=== PATIENT | female | born 1940 | race Caucasian/White ===

== ENCOUNTER 2024-09-07 15:12 | Outpatient (RCR) | payer MEDICARE, OTHER, SELFPAY | END 2024-09-07 23:59 | disposition home or self-care (01) | LOC: RST 15:12 | PROVIDERS: ATTENDING PHYSICIAN Radiology Radiation Oncology; PRIMARYCARE PHYSICIAN Internal Medicine | DX: C01 Malignant neoplasm of base of tongue (principal); R13.19 Other dysphagia | CPT/HCPCS: 92526; 92610 ==

== ENCOUNTER 2024-10-08 09:17 | Outpatient (RCR) | payer MEDICARE, OTHER, SELFPAY | END 2024-10-08 23:59 | disposition home or self-care (01) | LOC: RPT 09:17 | PROVIDERS: ATTENDING PHYSICIAN Radiology Radiation Oncology; PRIMARYCARE PHYSICIAN Internal Medicine | DX: C01 Malignant neoplasm of base of tongue (principal); R13.19 Other dysphagia | CPT/HCPCS: 92526 ==

== ENCOUNTER 2024-11-05 14:14 | Inpatient (IN) | payer MEDICARE, OTHER, SELFPAY ==
[2024-11-05] VITALS (9 sets, daily range): BP systolic 120–156; BP diastolic 57–81; BMI 28.3; BMI 25.6
--- NOTE | 2024-11-05 11:10 | ED.GENMED ---
History of Present Illness
<Jade Burns PA-C - Last Filed: 11/05/24 15:33>
General
Chief Complaint: Abdominal Symptoms
Source: patient and spouse
Exam Limitations: none
Time Seen by Provider: 11/05/24 10:57
History of Present Illness
History of Present Illness:
83yoF with a history of squamous cell carcinoma of the tongue, hypertension, and hyperlipidemia presenting with her for evaluation of vomiting. Patient drank a shake 3 days ago and vomited afterwards. She has been having nausea and a
'nervous stomach' since then and has not been eating much. She ate some noodles and soup last night for dinner and vomited some of it up. She took both Compazine and Zofran last night about 10 minutes before eating. She called her oncologist
today and was told to go to the ED for evaluation. Patient finished 7 weeks of chemotherapy and radiation earlier this week. She denies any fevers, chest pain, shortness of breath, abdominal pain.
Phy Exam
<Jade Burns PA-C - Last Filed: 11/05/24 15:33>
General Physical Exam
General Presentation: no apparent distress
General Skin: warm and dry
General Habitus: normal
General Mental: alert
ENT Exam
ENT Exam: other (Erythema/irritation noted in posterior oropharynx)
Cardiovascular Exam
Cardiovascular Exam: regular rate/rhythm
Pulmonary Exam
Pulmonary Exam: lungs clear, no respiratory distress, no rales, no crackles, no rhonchi and no wheezing
Gastrointestinal Exam
Gastrointestinal Exam: non tender, soft and non distended
Neurological Exam
Neurological Exam: alert
Janel Coma Scale
Eye Opening: Spontaneous
Verbal Response: Oriented
Motor Response: Obeys Commands
GCS Total Score: 15
Skin Exam
Skin Exam: normal color and warm/dry
Psychiatric Exam
Psychiatric Exam: normal mood/affect
Course
<Jade Burns PA-C - Last Filed: 11/05/24 15:33>
Orders/Labs/Results
Orders:
Orders
11/05/24 11:09
0.9% Sodium Chloride 1000 ml [Nss] 1,000 ml IV BOLUS
Ondansetron Injectable [Zofran] 4 mg IV NOW STA
11/05/24 11:38
Complete Blood Count/With Diff Urgent
Comprehensive Metabolic Panel Urgent
Magnesium Urgent
11/05/24 13:00
Cardiac Monitoring- Treatment ONCE
Potassium Chloride [KCl] 40 meq PO NOW STA
11/05/24 13:01
Electrocardiogram (*1) Urgent
Reason for Study: QTc Monitoring
11/05/24 13:07
Magnesium Sulfate 4 Gram/100Ml [Magnesium Sulfate] 4 gram in 100 ml IV NOW
11/05/24 13:12
Potassium Chloride 10% Elixir [KCl Elixir] 40 meq PO NOW STA
11/05/24 13:49
Admit/Transfer Patient As Directed
Co-Sign Provider:
Level of Care: Inpatient admission
Assign to:: Telemetry
Physician / Group: gamaliel damon
Diagnosis: intract nausea/vomiting 2/2 chemo, hypomag, hypokalemia
Reason for Telemetry: Arrhythmia
Date to Stop Telemetry: 11/08/24
Time to Stop Telemetry: 11:00
Reason for Hospitalization: intract nausea/vomiting 2/2 chemo, hypomag, hypokalemia
Expected length of stay greater than two midnights?: Yes
ELOS- Estimated Length of Stay in days: 3
I certify the patient meets the requirements for IP care: Yes
Code Status As Directed
Resuscitation Status: Full Code
11/05/24 13:54
PRN Pain Medication Management As Directed
May give lesser potent ordered pain med per pt: Yes
preference::
Protocol:: Medication orders for pain may be administered in a
manner that supports deferring to patient preference
when the pt is:
- Requesting an ordered lesser potent pain medication.
Least to most potent pain medications are defined
as: acetaminophen < NSAID < tramadol < opioids
(morphine, oxycodone, hydromorphone).
- Requesting a lesser dose of the same medication IF
ORDERED.
- Requesting a less intrusive route of administration
if both routes are prescribed by the provider (PO <
IV).
11/05/24 14:00
Flush (0.9% Sodium Chloride) [Flush (Nss)] See Dose Instructions IV PER PROTOCOL
11/05/24 14:02
Potassium Chloride 10% Elixir [KCl Elixir] 40 meq PO NOW STA
11/05/24 Dinner
Full Liquids
At Your Request: Full Participation
Does patient need a safe tray?: No
11/05/24 15:27
0.9% Sodium Chloride 1000 ml [Nss] 1,000 ml Potassium Chloride [KCl] 40 meq IV 80 mls/hr
Acetaminophen [Tylenol] 650 mg PO Q4HPRN PRN
Oxycodone [Roxicodone] 5 mg PO Q6HPRN PRN severe pains
Promethazine [Phenergan] 12.5 mg 0.9% Sodium Chloride 50 ml [Nss] 50 ml IV Q4HPRN
Viscous Lidocaine 2% [Xylocaine Viscous Cup] DOSE ml PO BIDPRN PRN throat pain
11/05/24 15:27
Activity As Directed
Activity Level: As Tolerated
Intake/ Output As Directed
Frequency: Per unit guidelines
Vital Signs As Directed
Frequency: Per unit guidelines
Weight As Directed
Frequency: Daily
Pt Eval And Treat Routine
Activity Level: As Tolerated
DX Deep Vein Thrombosis Video Routine
11/05/24 18:00
Ondansetron Injectable [Zofran] 4 mg IV Q6HPRN PRN
11/05/24 20:00
Heparin 5,000 units SC Q12
pregabalin [Lyrica] 150 mg PO BID
11/06/24 06:00
Complete Blood Count/With Diff IN AM
Comprehensive Metabolic Panel IN AM
11/06/24 08:00
Amlodipine [Norvasc] 5 mg PO DAILY
Escitalopram Oxalate [Lexapro] 10 mg PO DAILY
11/07/24 06:00
Complete Blood Count/With Diff IN AM
Comprehensive Metabolic Panel IN AM
11/08/24 06:00
Complete Blood Count/With Diff IN AM
Comprehensive Metabolic Panel IN AM
11/08/24 11:00
DC Protocol for Telemetry ONCE
Abnormal Lab Results
11/05/24
11:38
WBC 1.9 L* 10^3/uL
(4.8-10.8)
RBC 3.29 L 10^6/uL
(4.20-5.40)
Hgb 10.1 L g/dL
(12.0-16.0)
Hct 30.0 L %
(37.0-47.0)
Absolute Lymphs (auto) 0.2 L 10^3/uL
(1.2-3.4)
Lymphocytes % 10.0 L %
(20.5-51.1)
Monocytes % 15.8 H %
(1.7-9.3)
Potassium 3.0 L mmol/L
(3.5-5.1)
BUN 24 H mg/dl
(7-17)
Creatinine 0.5 L mg/dL
(0.6-1.0)
Calcium 7.8 L mg/dl
(8.4-10.2)
Magnesium 0.9 L* mg/dl
(1.6-2.3)
11/05/24 11:38
11/05/24 11:38
Vital Signs
Initial and Last Documented VS:
Initial Vital Signs
Temp Pulse Resp BP Pulse Ox
98.7 F 89 20 123/72 94
11/05/24 10:30 11/05/24 10:30 11/05/24 10:30 11/05/24 10:30 11/05/24 10:30
Last Documented Vital Signs
Temp Pulse Resp BP Pulse Ox
98.7 F 85 16 128/62 93
11/05/24 10:30 11/05/24 13:00 11/05/24 13:00 11/05/24 13:00 11/05/24 13:00
<Paco Waldron, DO - Last Filed: 11/05/24 14:01>
Orders/Labs/Results
Orders:
Orders
11/05/24 11:09
0.9% Sodium Chloride 1000 ml [Nss] 1,000 ml IV BOLUS
Ondansetron Injectable [Zofran] 4 mg IV NOW STA
11/05/24 11:38
Complete Blood Count/With Diff Urgent
Comprehensive Metabolic Panel Urgent
Magnesium Urgent
11/05/24 13:00
Cardiac Monitoring- Treatment ONCE
Potassium Chloride [KCl] 40 meq PO NOW STA
11/05/24 13:01
Electrocardiogram (*1) Urgent
Reason for Study: QTc Monitoring
11/05/24 13:07
Magnesium Sulfate 4 Gram/100Ml [Magnesium Sulfate] 4 gram in 100 ml IV NOW
11/05/24 13:12
Potassium Chloride 10% Elixir [KCl Elixir] 40 meq PO NOW STA
11/05/24 13:49
Admit/Transfer Patient As Directed
Co-Sign Provider:
Level of Care: Inpatient admission
Assign to:: Telemetry
Physician / Group: gamaliel damon
Diagnosis: intract nausea/vomiting 2/2 chemo, hypomag, hypokalemia
Reason for Telemetry: Arrhythmia
Date to Stop Telemetry: 11/08/24
Time to Stop Telemetry: 11:00
Reason for Hospitalization: intract nausea/vomiting 2/2 chemo, hypomag, hypokalemia
Expected length of stay greater than two midnights?: Yes
ELOS- Estimated Length of Stay in days: 3
I certify the patient meets the requirements for IP care: Yes
Code Status As Directed
Resuscitation Status: Full Code
11/05/24 13:54
PRN Pain Medication Management As Directed
May give lesser potent ordered pain med per pt: Yes
preference::
Protocol:: Medication orders for pain may be administered in a
manner that supports deferring to patient preference
when the pt is:
- Requesting an ordered lesser potent pain medication.
Least to most potent pain medications are defined
as: acetaminophen < NSAID < tramadol < opioids
(morphine, oxycodone, hydromorphone).
- Requesting a lesser dose of the same medication IF
ORDERED.
- Requesting a less intrusive route of administration
if both routes are prescribed by the provider (PO <
IV).
11/05/24 14:00
Flush (0.9% Sodium Chloride) [Flush (Nss)] See Dose Instructions IV PER PROTOCOL
11/05/24 14:02
Potassium Chloride 10% Elixir [KCl Elixir] 40 meq PO NOW STA
11/05/24 Dinner
Full Liquids
At Your Request: Full Participation
Does patient need a safe tray?: No
11/05/24 15:27
0.9% Sodium Chloride 1000 ml [Nss] 1,000 ml Potassium Chloride [KCl] 40 meq IV 80 mls/hr
Acetaminophen [Tylenol] 650 mg PO Q4HPRN PRN
Oxycodone [Roxicodone] 5 mg PO Q6HPRN PRN severe pains
Promethazine [Phenergan] 12.5 mg 0.9% Sodium Chloride 50 ml [Nss] 50 ml IV Q4HPRN
Viscous Lidocaine 2% [Xylocaine Viscous Cup] DOSE ml PO BIDPRN PRN throat pain
11/05/24 15:27
Activity As Directed
Activity Level: As Tolerated
Intake/ Output As Directed
Frequency: Per unit guidelines
Vital Signs As Directed
Frequency: Per unit guidelines
Weight As Directed
Frequency: Daily
Pt Eval And Treat Routine
Activity Level: As Tolerated
DX Deep Vein Thrombosis Video Routine
11/05/24 18:00
Ondansetron Injectable [Zofran] 4 mg IV Q6HPRN PRN
11/05/24 20:00
Heparin 5,000 units SC Q12
pregabalin [Lyrica] 150 mg PO BID
11/06/24 06:00
Complete Blood Count/With Diff IN AM
Comprehensive Metabolic Panel IN AM
11/06/24 08:00
Amlodipine [Norvasc] 5 mg PO DAILY
Escitalopram Oxalate [Lexapro] 10 mg PO DAILY
11/07/24 06:00
Complete Blood Count/With Diff IN AM
Comprehensive Metabolic Panel IN AM
11/08/24 06:00
Complete Blood Count/With Diff IN AM
Comprehensive Metabolic Panel IN AM
11/08/24 11:00
DC Protocol for Telemetry ONCE
Abnormal Lab Results
11/05/24
11:38
WBC 1.9 L* 10^3/uL
(4.8-10.8)
RBC 3.29 L 10^6/uL
(4.20-5.40)
Hgb 10.1 L g/dL
(12.0-16.0)
Hct 30.0 L %
(37.0-47.0)
Absolute Lymphs (auto) 0.2 L 10^3/uL
(1.2-3.4)
Lymphocytes % 10.0 L %
(20.5-51.1)
Monocytes % 15.8 H %
(1.7-9.3)
Potassium 3.0 L mmol/L
(3.5-5.1)
BUN 24 H mg/dl
(7-17)
Creatinine 0.5 L mg/dL
(0.6-1.0)
Calcium 7.8 L mg/dl
(8.4-10.2)
Magnesium 0.9 L* mg/dl
(1.6-2.3)
11/05/24 11:38
11/05/24 11:38
Vital Signs
Initial and Last Documented VS:
Initial Vital Signs
Temp Pulse Resp BP Pulse Ox
98.7 F 89 20 123/72 94
11/05/24 10:30 11/05/24 10:30 11/05/24 10:30 11/05/24 10:30 11/05/24 10:30
Last Documented Vital Signs
Temp Pulse Resp BP Pulse Ox
98.7 F 85 16 128/62 93
11/05/24 10:30 11/05/24 13:00 11/05/24 13:00 11/05/24 13:00 11/05/24 13:00
Tanilt;Jade Burns PA-C - Last Filed: 11/05/24 15:33>
MDM/Problems Addressed
Differential Diagnosis Includes:
83yoF here with n/v x 3 days. Finished chemo and radiation 4 days ago for squamous cell tongue cancer. VSS. She is nontoxic-appearing. Abdominal exam is benign. Differential diagnosis includes but is not limited to: side effect of chemotherapy,
gastroenteritis, dehydration
Initial ED plan: Check CBC, CMP, and magnesium. IV Zofran and fluid bolus.
<Jade Burns PA-C - Last Filed: 11/05/24 15:33>
*Pulse Oximetry
SaO2: 94
Oxygen Mode of Delivery: Room air
Patient hypoxic: no
*EKG
Interpreted by ED Provider?: Yes
EKG Intrepretation Date: 11/05/24
Heart Rate: 82
Rate: normal
Rhythm: sinus
[place]: normal axis
Interval: normal interval
QRS Pattern: normal QRS
Ischemia: no ischemia
*Critical Care Note
Total Time (30-74mins, 75-104mins- exclusive of procedures): Not Applicable
<Jade Burns PA-C - Last Filed: 11/05/24 15:33>
Update Note
Update Note:
Labs reveal a magnesium of 0.9 and a potassium of 3.0. Leukopenia noted with a white count of 1.9. Neutrophils are normal and she is afebrile. EKG obtained and intervals are normal. Patient having difficulty tolerating oral fluids/electrolyte
replacement due to dysphagia from her radiation. 4g IV magnesium as well as 40mEq potassium normal. Patient admitted for further management.
ED Attending Note
<Jade Burns PA-C - Last Filed: 11/05/24 15:33>
-
Portions of this chart may have been created with voice recognition software.� Occasional wrong word or��sound alike� substitutions may have occurred due to the inherent limitations of voice recognition software.
<Paco Waldron DO - Last Filed: 11/05/24 14:01>
ED Attending Note
Patient seen and examined by attending physician: Yes
I performed the substantive portion of visit, reviewed & personally made and approve the management plan that is documented in note by myself or MATTHEW.: Yes
ED Attending Note:
Seen with PA examined independently agree with assessment and plan oncology patient with nausea decreased p.o. intake magnesium and potassium noted, ANC noted patient is unable to tolerate p.o. potassium here due to prior radiation will likely
require admission for IV therapy
Discharge Plan
Departure
Patient Disposition: Admit
Date of Disposition: 11/05/24
Time of Disposition: 13:17
Presentation/result/management discussed w/ accepting MD/DO: Hospitalist
Discharge Problem:
Nausea and vomiting, Hypomagnesemia, Hypokalemia
Interventions
Interventions:
*Risk Screen - Suicide Last Done: 11/05/24 10:30
*General Assessment Last Done: 11/05/24 10:30
*Neglect/Abuse Screening Last Done: 11/05/24 10:30
*Nursing Disposition Last Done: 11/05/24 15:17
QQ-[id number]-[id number] Assessment Last Done: 11/05/24 12:13
ED- Cardiac Assessment Last Done: 11/05/24 12:13
ED- Neurological Assessment Last Done: 11/05/24 12:13
ED- Pulmonary Assessment Last Done: 11/05/24 12:13
Discharge Date and Time
Discharge Date/Time: 11/05/24 15:18
[2024-11-05] MEDS: NSS 1000 IV (11:38)
[2024-11-05] MEDS: ZOFRAN 4 MG IV (11:41)
[2024-11-05 11:48] LABS: Hematocrit 30.0 % (37.0-47.0); Hemoglobin 10.1 g/dL (12.0-16.0); Mean Corp Hgb Conc. 33.7 g/dL (33.0-37.0); Mean Corpuscular Volume 91.2 fL (81.0-99.0); Platelet Count 134 10^3/uL (130-400); Red Cell Dist. Width 13.9 % (11.5-14.5)
[2024-11-05 12:05] LABS: Nucleated Red Blood Cells % 0 %
[2024-11-05 13:00] LABS: ALT (SGPT) 18 U/L (0-35); AST (SGOT) 26 U/L (14-36); Albumin 3.7 g/dl (3.5-5.0); Alkaline Phosphatase 60 U/L (38-126); Blood Urea Nitrogen 24 mg/dl (7-17); Calcium 7.8 mg/dl (8.4-10.2); Carbon Dioxide 28 mmol/L (22-30); Chloride 100 mmol/L (98-107); Estimated Creatinine Clearance 62 ml/min; Glucose 98 mg/dl (70-99); Magnesium 0.9 mg/dl (1.6-2.3); Potassium 3.0 mmol/L (3.5-5.1); Sodium 138 mmol/L (135-145); Total Protein 6.5 g/dl (6.3-8.2); eGFR > 60.00
--- NOTE | 2024-11-05 13:23 | HPS.HSE ---
Addendum entered and electronically signed by Maricarmen Diaz MD 11/05/24 14:43:
This is an addendum to H&P written by Corrine Hamlin on 11/05/2024. �Patient seen and examined independently with SPEECH THERAPY DIRECTOR.
83-year-old female past medical history of squamous cell carcinoma of the tongue status postchemotherapy/radiation earlier this week, hypertension, hyperlipidemia, anxiety, neuropathy, presenting with vomiting. �No fevers, abdominal pain.
Vital signs unremarkable.
Labs show white cell count of 1.9. �Hemoglobin 10.1. �Potassium 3. �Magnesium 0.9.
Patient with vomiting secondary to recent chemotherapy resulting in hypokalemia/hypomagnesemia. Leukopenia from chemo.�
IV fluids given. �Zofran for nausea. �Magnesium, potassium repletion. Did not tolerate PO and liquid electrolyte repletion due to dysphagia from radiation.�
Original Note:
Family Physician
-
Family Physician: Yolande Khalil
Chief Complaint
-
nausea vomting post chemo radiation
History of Present Illness
83-year-old female with history of squamous cell tongue cancer currently undergoing chemo and radiation therapy since April 2024 with last treatment on 11/01/2024. She just completed 7 weeks of chemo and radiation this past Friday with [place]
radiation. The patient reports ongoing nausea with vomiting and decreased ability to eat and drink. She only currently eats a liquid diet with prior viscous lidocaine before meals due to pain. She has had minimal relief with Compazine and Zofran
before eating or drinking. She denies headache, sore throat, fever, chills, chest pain, palpitations, cough, shortness of breath, abdominal pain, diarrhea, urinary symptoms. She has past medical history of squamous cell CA of the tongue Dx April
2024, dysphagia liquid diet only, chronic tongue/throat pain, HTN, HLD, anxiety
Medical History
Past Medical History
Past Medical History: Reports Other
Additional Past Medical History:
Squamous cell CA tongue on chemo and radiation Dx April 2024
Dysphagia liquid diet only due to above
Chronic pain to tongue and neck
HTN
HLD
Anxiety
Right sided breast cancer status post radiation, lumpectomy 2011
Past Surgical History: Reports Other
Additional Past Surgical History:
Right sided breast cancer status pos tlumpectomy 2011
Right knee replacement
Hysterectomy
Social History
Tobacco: Former Smoker (Smoked for 4 years in college)
Alcohol: None
Drug: None
Personal:
Living: With Family ( Ramiro)
Employment: Retired
Family History
Family History: Other (Brother glioblastoma at age 81, nephew glioblastoma age 50)
Allergies / Home Medications
Allergies reflects when Allergies were last updated in [facility].
Home Medications with original date entered in [facility]
Allergy/Medication List:
Allergies
Allergy/AdvReac Type Severity Reaction Status Date / Time
Calcium Channel Blocking Allergy cough Verified 11/05/24 10:38
Agent Dilt
Sulfa (Sulfonamide Allergy Rash Verified 11/05/24 10:38
Antibiotics)
pse deficiency Allergy doesn't Uncoded 11/05/24 10:38
wake up
from
muscle
relaxers
from
surgery
Home Medications
amlodipine 5 mg tablet (Norvasc) 5 mg PO DAILY 11/05/24
atorvastatin 20 mg tablet (Lipitor) 20 mg PO QPM 11/05/24
escitalopram oxalate 10 mg tablet (Lexapro) 10 mg PO DAILY 11/05/24
lidocaine HCl 2 % mucosal solution (Lidocaine Viscous) 1 applic mucous membrane BIDPRN PRN throat pain 11/05/24
ondansetron HCl 4 mg tablet 4 mg PO Q8HPRN PRN nausea 11/05/24
oxycodone 5 mg tablet 5 mg PO Q6HPRN PRN severe pains 11/05/24
pregabalin 150 mg capsule (Lyrica) 150 mg PO BID 11/05/24
Review of Systems
-
History Source: Patient and Family ( Ramiro at bedside)
A 12 point ROS was completed and negative except as noted: Yes
Constitutional: Reports Fatigue; Denies Chills
EENT: Reports Other (Chronic sore right side tongue into neck due to squamous cell cancer, chronic adenopathy right anterior cervical chain); Denies Runny Nose
Respiratory: Denies Cough or Trouble Breathing
Cardiac: Denies Chest Pain, Palpitations or Syncope
Abdomen/GI: Reports Nausea and Vomiting; Denies Abdominal Pain, Diarrhea, Constipated or Bloody Stools
: Denies Dysuria, Frequency, Flank Pain, Incontinence or Urgency
Musculoskeletal: Denies Joint Pain or Edema
Skin: Denies Itching or Rash
Neurological: Reports Weakness (Generalized); Denies Dizzy or Headache
Endocrine: Reports No Symptoms
Hematologic/Lymphatic: Reports No Symptoms
Psych: Reports Calm
Physical Exam
Vital Signs
Vital Signs
Temp Pulse Resp BP Pulse Ox
98.7 F 85 16 128/62 93
11/05/24 10:30 11/05/24 13:00 11/05/24 13:00 11/05/24 13:00 11/05/24 13:00
Physical Exam
General: Conversant; No Fever or Chills
HEENT: NormoCephalic, Anicteric, Moist mucous membranes, PERRLA, [place] Conjunctivae, No Ptosis and Other (Chronic sore right side tongue into neck due to squamous cell cancer, chronic adenopathy right anterior cervical chain); No Pharyngeal Erythema
Respiratory: Clear; No Wheezes, Rales or Rhonchi
Cardiac: S1/S2 and Regular Rhythm; No Murmur, Rub, Gallop or Peripheral Edema
Breast: Deferred by me
GI: Soft, Non Tender, Non Distended, Normal Bowel Sounds and No Hepatosplenomegaly
Rectal: Deferred by Provider
Genito-urinary: Deferred by me
Musculoskeletal: No Clubbing, No Cyanosis and No Edema
Skin: Warm and Dry; No Rash
Neuro: AO x 3, No Motor Deficits, Nonfocal/grossly intact, Cranial Nerves Intact and No Sensory Deficits; No Slurred Speech, Facial Droop, Tremors or Sedated
Psych: Calm
Laboratory Results
-
11/05/24 11:38
11/05/24 11:38
Laboratory Results
Total Bilirubin 0.8 mg/dl (0.2-1.3) 11/05/24 11:38
AST 26 U/L (14-36) 11/05/24 11:38
ALT 18 U/L (0-35) 11/05/24 11:38
Alkaline Phosphatase 60 U/L (38-126) 11/05/24 11:38
Impression/Plan
-
Impression/plan:
Admit to telemetry
#Intractable nausea vomiting post chemo/radiation
No relief with Compazine and Zofran at home
- IV NSS 1 L in ER continue IV NSS 80 cc/h
- IV Zofran in ER
- As needed Phenergan for nausea vomiting if no relief
- Follow CBC, CMP
- May continue home oxycodone 5 mg every 6 hours as needed throat pain, Lyrica 150 mg p.o. twice daily throat pain, viscous lidocaine before meals
#Leukopenia/anemia in setting of chemotherapy for Squamous cell tongue cancer
WBC 1.9 absolute neutrophils 1.4
Hgb 10
#Acute hypomagnesemia
Mag 0.9
Mag rider 4 g
#Acute hypokalemia
K 3.0
Patient given 40 KCl elixir in ER followed by 40 KCl rider
#HTN
BP 128/62
Continue Norvasc 5 mg daily with hold parameters
#HLD
- Hold Lipitor due to vomiting
#Anxiety
Continue Lexapro 10 mg daily
#History of breast cancer with right sided lumpectomy/radiation 2011
DVT prophylaxis
Subcu heparin
Full code per patient with Ramiro at bedside
[2024-11-05] MEDS: KCL ELIXIR 40 MEQ PO (13:25)
[2024-11-05] MEDS: MAGNESIUM SULFATE 100 IV (13:26)
--- NOTE | 2024-11-05 14:29 | CM ---
CM reviewed chart and met with pt and bedside in ED. Lives with , 2 story home, 2 APRIL, has first floor setup.
Independent in ADLs, personal care and ambulation at baseline. No DME. Just completed chemo and radiation for tongue cancer.
Confirms prescription coverage.
No hx VN or SNF.
PCP: Yolande Khalil
Pharmacy: [facility]
CM will continue to follow for all discharge planning needs.
[2024-11-05] MEDS: NSS with KCL 40 MEQ 1000 IV (16:55)
[2024-11-05] MEDS: XYLOCAINE VISCOUS CUP 15 ML PO (18:24)
[2024-11-05] MEDS: HEPARIN 5000 UNITS SC (19:55)
[2024-11-05] MEDS: LYRICA 100 MG PO (19:56)
[2024-11-05] MEDS: LYRICA 50 MG PO (19:56)
[2024-11-05] MEDS: ROXICODONE 5 MG PO (20:51)
--- NOTE | 2024-11-06 02:01 | PTCARENOTE ---
Pt requests to have all 4 side rails up while she is sleeping.
[2024-11-06] MEDS: ROXICODONE 5 MG PO ×2 (02:54→18:20)
[2024-11-06 03:00] VITALS: BP 127/89; BP 141/69
[2024-11-06] MEDS: NSS with KCL 40 MEQ 1000 IV ×2 (05:20→17:50)
[2024-11-06 06:00] VITALS: BMI 25.6
[2024-11-06 07:00] VITALS: BP 138/62
[2024-11-06] MEDS: LEXAPRO 10 MG PO (08:12)
[2024-11-06] MEDS: HEPARIN 5000 UNITS SC ×2 (08:13→20:05)
[2024-11-06] MEDS: NORVASC 5 MG PO (08:13)
[2024-11-06] MEDS: LYRICA 100 MG PO ×2 (08:13→20:05)
[2024-11-06] MEDS: LYRICA 50 MG PO ×2 (08:13→20:05)
[2024-11-06 08:14] LABS: ALT (SGPT) 14 U/L (0-35); AST (SGOT) 22 U/L (14-36); Albumin 3.3 g/dl (3.5-5.0); Alkaline Phosphatase 63 U/L (38-126); Blood Urea Nitrogen 14 mg/dl (7-17); Calcium 7.6 mg/dl (8.4-10.2); Carbon Dioxide 23 mmol/L (22-30); Chloride 107 mmol/L (98-107); Estimated Creatinine Clearance 53 ml/min; Glucose 78 mg/dl (70-99); Potassium 3.3 mmol/L (3.5-5.1); Sodium 140 mmol/L (135-145); Total Protein 5.9 g/dl (6.3-8.2); eGFR > 60.00
[2024-11-06 08:31] LABS: Hematocrit 28.2 % (37.0-47.0); Hemoglobin 9.5 g/dL (12.0-16.0); Mean Corp Hgb Conc. 33.7 g/dL (33.0-37.0); Mean Corpuscular Volume 91.6 fL (81.0-99.0); Platelet Count 140 10^3/uL (130-400); Red Cell Dist. Width 14.0 % (11.5-14.5)
--- NOTE | 2024-11-06 09:04 | CON.GI ---
Addendum entered and electronically signed by Angel Obrien MD 11/06/24 11:55:
I saw and examined the patient.
The CREDIT ANALYSIS MANAGER or PA's note was reviewed and I agree with the note, history and plan:
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 She has tried viscous lidocaine without improvement. She is unable to tolerate p.o. The request is for
PEG tube placement
abd: soft, nontender
impression:
odynophagia/oropharyngeal dysphagia
plan:
I did discuss with this patient and her who is a retired physician that in light of her underlying tongue cancer she should not have a pull PEG tube which can seed the PEG tract. I would recommend a push PEG versus surgical J-tube. They
will both think about this. This will tentatively be scheduled for Friday as Dr. Ba who is coming on service is proficient in the push PEG technique.
- Follow white blood count to ensure she does not become neutropenic
- Will add coags
- I did discuss with both the patient and her .
Original Note:
Consultation
-
Date/Time Consultation Requested: 11/06/24 0830
Date/Time Consultation Performed: 11/06/24 0900
Requesting Provider: Lamonte Shahid MD
Performing Provider: VANIA Tanner, Angel Obrien MD
Reason for Consultation: peg evaluation
Medical History
Chief Complaint / HPI
Chief Complaint: odynophagia
History of Present Illness:
Pt is an 83yo with hx HTN, hyperlipidemia, anxiety, breast CA, TIA, pseudocholinesterase deficiency neuropathy, and squamous cell CA of tongue. She completed 7 weeks of chemo and radiation earlier this week that she started in August. She admits
she began with some odynophagia several weeks ago that progressively got worse with treatment and the week prior to admission she was vomiting smoothies with minimal intakes. She had tried viscus lidocaine without improvement. She admits to about
15 lbs wt loss with treatment. She was followed by Dr. Juarez and aleks radiation.
She admits to odynophagia with severe burning with swallowing and feeling of saliva at time not passing. She has had vomiting without hematemesis, and admits to increased nausea this past week. She denies diarrhea, constipation, or rectal
bleeding. she had been taking Metamucil. Pt also with electrolyte imbalance on admission.
Past Medical History
Past Medical History: Cancer (squamous cell CA tongue, breast Cancer ), CVA (TIA), HTN, Hypercholesterolemia, Psychiatric (anxiety) and Other (neuropathy, IBS, pseudocholinesterase deficiency)
Social History
Tobacco: Former Smoker (some during college )
Alcohol: Occasional
Drug: None
Personal:
Living: With Family
Employment: Retired
Family History
Family History: Other (no family hx GI cancers )
Allergies / Home Medications
Allergy/AdvReac Type Severity Reaction Status Date / Time
Calcium Channel Blocking Allergy cough Verified 11/05/24 10:38
Agent Dilt
Sulfa (Sulfonamide Allergy Rash Verified 11/05/24 10:38
Antibiotics)
pse deficiency Allergy doesn't Uncoded 11/05/24 10:38
wake up
from
muscle
relaxers
from
surgery
�Medication �Instructions �Recorded
amlodipine 5 mg tablet (Norvasc) 5 mg PO DAILY 11/05/24
atorvastatin 20 mg tablet (Lipitor) 20 mg PO QPM 11/05/24
escitalopram oxalate 10 mg tablet 10 mg PO DAILY 11/05/24
(Lexapro)
lidocaine HCl 2 % mucosal solution 1 applic mucous membrane BIDPRN 11/05/24
(Lidocaine Viscous) PRN throat pain
ondansetron HCl 4 mg tablet 4 mg PO Q8HPRN PRN nausea 11/05/24
oxycodone 5 mg tablet 5 mg PO Q6HPRN PRN severe pains 11/05/24
pregabalin 150 mg capsule (Lyrica) 150 mg PO BID 11/05/24
Review of Systems
-
History Source: Patient
Constitutional: Reports Weight Loss
EENT: Reports Other (odynophagia, dysphagia )
Respiratory: Reports Other (upper airway congestion)
Cardiac: Reports No Symptoms
Abdomen/GI: Reports Nausea and Vomiting
: Reports Other (frequency )
Musculoskeletal: Reports No Symptoms
Skin: Reports No Symptoms
Neurological: Reports No Symptoms
Endocrine: Reports No Symptoms
Hematologic/Lymphatic: Reports No Symptoms
Vital Signs
Temp Pulse Resp BP Pulse Ox
98.6 F 73 16 138/62 92
11/06/24 07:00 11/06/24 07:00 11/06/24 07:00 11/06/24 07:00 11/06/24 07:00
Physical Exam
Exam
General: Well Developed, Well Nourished and No Apparent Distress
HEENT: Normocephalic and Anicteric
Respiratory: Other (constant clearing of throat with evaluation )
Cardiac: Regular Rhythm
GI: Soft, Non Tender and Non Distended
Musculoskeletal: No Clubbing and No Cyanosis
Skin: Warm and Dry
Neuro: Awake, Alert and AO x 3
Psych: Calm
Results
WBC 1.9 10^3/uL (4.8-10.8) L* 11/06/24 07:21
Hgb 9.5 g/dL (12.0-16.0) L 11/06/24 07:21
Hct 28.2 % (37.0-47.0) L 11/06/24 07:21
MCV 91.6 fL (81.0-99.0) 11/06/24 07:21
Plt Count 140 10^3/uL (130-400) 11/06/24 07:21
Absolute Neuts (auto) 1.4 10^3/uL (1.4-6.5) 11/05/24 11:38
Sodium 140 mmol/L (135-145) 11/06/24 07:21
Potassium 3.3 mmol/L (3.5-5.1) L 11/06/24 07:21
Chloride 107 mmol/L (98-107) 11/06/24 07:21
Carbon Dioxide 23 mmol/L (22-30) 11/06/24 07:21
BUN 14 mg/dl (7-17) 11/06/24 07:21
Creatinine 0.5 mg/dL (0.6-1.0) L 11/06/24 07:21
Calcium 7.6 mg/dl (8.4-10.2) L 11/06/24 07:21
Total Bilirubin 0.7 mg/dl (0.2-1.3) 11/06/24 07:21
AST 22 U/L (14-36) 11/06/24 07:21
ALT 14 U/L (0-35) 11/06/24 07:21
Alkaline Phosphatase 63 U/L (38-126) 11/06/24 07:21
Diagnostic Image Results:
none reviewed
Prior GI Procedures:
EGD: none
Colonoscopy: age 78 [place] with polyps
Assessment / Plan
-
Pt is an 83yo with hx HTN, hyperlipidemia, anxiety, breast CA, TIA, pseudocholinesterase deficiency neuropathy, and squamous cell CA of tongue. She completed 7 weeks of chemo and radiation earlier this week that she started in August. She admits
she began with some odynophagia several weeks ago that progressively got worse with treatment and the week prior to admission she was vomiting smoothies with minimal intakes. She had tried viscus lidocaine without improvement. She admits to about
15 lbs wt loss with treatment. She was followed by Dr. Juarez and aleks marinelli. Pt also with electrolyte imbalance on admission.
-odynophagia/dysphagia
-squamous cell ca of tongue with recent chemo and radiation
-wt loss
-leukopenia
-electrolyte imbalance hypokalemia, hypomagnesemia
other med problems:
HTN, hyperlipidemia, anxiety, breast CA, TIA, pseudocholinesterase deficiency neuropathy
PLAN:
pt with wt loss and odynophagia/dysphagia with recent chemo/radiation
discussed option of waiting to see if symptoms improved vs peg placement -- sooner peg can be placed would be Friday - discussed monitoring oral intakes next 2 days
discussed GI endoscopic placement--push peg, vs surgical placement -- will further review with Dr. Obrien
discussed with patient risk and benefits of tube including risk bleeding, infection, perforation
if peg placed will need to stay in for at least 3 months til tube can be removed if swallowing function improves
also discussed continued monitoring for aspiration after completion of treatment
cont to correct electrolytes per medical team
-
-
Thank you for consultation and allowing me to participate in the patient's care. Please call the cosmetics demonstrator GI physician during the after hours with any questions or concerns.
--- NOTE | 2024-11-06 09:49 | W.PN.HOSP.TC ---
Today's Communication/Plan
-
f/w GI and oncology recommendations
Monitor blood work and replace accordingly
Assessment / Plan
Assessment / Plan
Physical Exam
General: Conversant; No Fever or Chills
HEENT: Normocephalic, Anicteric, Moist mucous membranes, PERRLA, [place] Conjunctivae, No Ptosis and Other (Chronic sore right side tongue into neck due to squamous cell cancer, chronic adenopathy right anterior cervical chain); No Pharyngeal Erythema
Respiratory: Clear; No Wheezes, Rales or Rhonchi
Cardiac: S1/S2 and Regular Rhythm;
GI: Soft, Non Tender, Non Distended, Normal Bowel Sounds
Genito-urinary: No Salgado
Musculoskeletal: No Clubbing, No Cyanosis and No Edema
Skin: Warm and Dry; No Rash
Neuro: AO x 3, No Motor Deficits, Nonfocal/grossly intact. No Sensory Deficits; No Slurred Speech, Facial Droop, Tremors or Sedated
Psych: Calm
A/P
#Intractable nausea vomiting due to chemo/radiation
No relief with Compazine and Zofran at home
c/w IVF
replace K, Mg
- As needed Phenergan for nausea vomiting if no relief
# Difficulty swallowing with weight loss/ intolerance to oral intake
d/w pt, her , they wanted GI evaluation for feeding tube placement.
I updated oncology
#Leukopenia/anemia in setting of chemotherapy for Squamous cell tongue cancer
WBC 1.9 absolute neutrophils 1.4
Hgb 10
Consult oncology, Primary doctor Dr Juarez
#Acute Hypokalemia/ hypomagnesemia
Hypocalcemia
c/w replacement
Recheck blood work
#HTN
Continue Norvasc 5 mg daily with hold parameters
#HLD
- Hold Lipitor due to vomiting
#Anxiety
Continue Lexapro 10 mg daily
#History of breast cancer with right sided lumpectomy/radiation 2011
DVT prophylaxis
Subcu heparin
Total time spent to see the patient, examine the patient, review data and lab results, discuss treatment plan with patient, nursing staff around 55 minutes
Anticipated Discharge: > 48 hours
Subjective/Interval History
-
Date of Service: November 06, 2024
Complains of cough/swallowing difficulty
Objective Data
-
Labs:
Laboratory Results
11/06/24
07:21
WBC 1.9 L*
Hgb 9.5 L
Hct 28.2 L
Plt Count 140
Sodium 140
Potassium 3.3 L
Chloride 107
Carbon Dioxide 23
BUN 14
Creatinine 0.5 L
Glucose 78
Calcium 7.6 L
Total Bilirubin 0.7
AST 22
ALT 14
Alkaline Phosphatase 63
Vital Signs:
Vital Signs
Temp Pulse Resp BP Pulse Ox
98.6 F 73 16 138/62 92
11/06/24 07:00 11/06/24 07:00 11/06/24 07:00 11/06/24 07:00 11/06/24 07:00
I&O
11/05/24 11/06/24 11/07/24
06:59 06:59 06:59
Intake Total 1440 / 1440
Balance 1440 / 1440
[2024-11-06 11:00] VITALS: BP 138/63
[2024-11-06 11:33] LABS: Nucleated Red Blood Cells % 0 %
--- NOTE | 2024-11-06 12:11 | CON.ONC ---
Consultation
-
Date Consultation Requested: 11/06/24
Date Consultation Performed: 11/06/24
Requesting Provider: Dr Irlanda Shahid
Performing Provider: Dr Jodie vIey
Reason for Consultation: SCC tongue
Impression
Impression
SCC base of tongue, finished chemo/RT around 11/01
odynophagia, nausea, weight loss
hypokalemia, hypomagnesemia
Plan
Plan
PO diet as able -- pain control, antiemetics
Replace K+, Mag
Would anticipate side effects from radiation to be peaking around now, with expected improvement over the next week or so
Would monitor caloric intake
Consideration for feeding tube per GI
d/w patient and at bedside
Patient History
History of Present Illness
Sherine is an 83yo F, patient of Dr. 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 She's been struggling with throat pain and difficulty swallowing, and presented with low K and Mag.
She's lost 15-20 lbs in the past couple months. She's interested in feeding tube options.
Past-Medical/Surgical History
Past Medical History
Past Medical History: Cancer (squamous cell CA tongue, breast Cancer ), CVA (TIA), HTN, Hypercholesterolemia, Psychiatric (anxiety) and Other (neuropathy, IBS, pseudocholinesterase deficiency)
Social History
Tobacco: Former Smoker (some during college )
Alcohol: Occasional
Drug: None
Personal:
Living: With Family
Employment: Retired
Family History
Family History: Other (no family hx GI cancers )
Patient Medication
�Medication �Instructions �Recorded �Confirmed �Last Taken �Type
amlodipine 5 mg tablet (Norvasc) 5 mg PO DAILY Blood Pressure 11/05/24 11/05/24 11/04/24 History
atorvastatin 20 mg tablet (Lipitor) 20 mg PO QPM High Cholesterol 11/05/24 11/05/24 11/04/24 History
escitalopram oxalate 10 mg tablet 10 mg PO DAILY Depression 11/05/24 11/05/24 11/04/24 History
(Lexapro)
lidocaine HCl 2 % mucosal solution 1 applic mucous membrane BIDPRN 11/05/24 11/05/24 Unknown History
(Lidocaine Viscous) PRN throat pain
ondansetron HCl 4 mg tablet 4 mg PO Q8HPRN PRN nausea 11/05/24 11/05/24 Unknown History
oxycodone 5 mg tablet 5 mg PO Q6HPRN PRN severe pains 11/05/24 11/05/24 Unknown History
pregabalin 150 mg capsule (Lyrica) 150 mg PO BID Pain 11/05/24 11/05/24 11/04/24 History
Active Medications
Generic Name Dose Route Start Last Admin
Trade Name Freq PRN Reason Stop Dose Admin
Acetaminophen 650 mg 11/05/24 15:27
Acetaminophen 325 Mg Tablet PO 12/03/24 15:26
Q4HPRN PRN
mild pain/RASCON/temp> 100.4F
Amlodipine Besylate 5 mg 11/06/24 08:00 11/06/24 08:13
Amlodipine 5 Mg Tablet PO 12/04/24 07:59 5 mg
DAILY ROSALIA Administration
Benzonatate 100 mg 11/06/24 08:28
Benzonatate 100 Mg Capsule PO 12/04/24 08:27
TIDPRN PRN
cough
Escitalopram Oxalate 10 mg 11/06/24 08:00 11/06/24 08:12
Escitalopram 10 Mg Tablet PO 12/04/24 07:59 10 mg
DAILY ROSALIA Administration
Heparin Sodium 5,000 units 11/05/24 20:00 11/06/24 08:13
Heparin 5,000 Units/Ml 1 Ml Vial SC 12/03/24 19:59 5,000 units
Q12 ROSALIA Administration
Promethazine HCl 12.5 mg/ 50.5 mls @ 101 mls/hr 11/05/24 15:27
Sodium Chloride IV 12/03/24 15:26
Q4HPRN PRN
nausea vomiting
Potassium Chloride/Sodium Chloride 40 meq in 1,000 mls @ 80 mls/hr 11/05/24 16:00 11/06/24 05:20
Nss With Kcl 40 Meq IV 1,000 mls
[id number] ROSALIA Administration
Lidocaine HCl 15 ml 11/05/24 16:33 11/05/24 18:24
Lidocaine Viscous 2% 15 Ml Cup PO 12/03/24 16:31 15 ml
QIDPRN PRN Administration
throat pain
Ondansetron HCl 4 mg 11/05/24 18:00
Ondansetron 4 Mg/2 Ml Vial IV 12/03/24 17:59
Q6HPRN PRN
nausea and vomiting
Oxycodone HCl 5 mg 11/05/24 15:27 11/06/24 02:54
Oxycodone 5 Mg Regular Release Tablet PO 11/19/24 15:26 5 mg
Q6HPRN PRN Administration
severe pains
Pregabalin 100 mg 11/05/24 20:00 11/06/24 08:13
Pregabalin 100 Mg Capsule PO 12/03/24 19:59 100 mg
BID ROSALIA Administration
Pregabalin 50 mg 11/05/24 20:00 11/06/24 08:13
Pregabalin 50 Mg Capsule PO 12/03/24 19:59 50 mg
BID ROSALIA Administration
Sodium Chloride 0 flush 11/05/24 14:00
Sodium Chloride 0.9% (Flush) Syringe IV 12/03/24 13:59
PER PROTOCOL ROSALIA
Physical Exam
-
General: Well Developed, Well Nourished, No Apparent Distress, Comfortable and Conversant; Negative Appears Chronically Ill
HEENT: Negative Jaundice
Neurology: Non Focal, No Lateralizing Symptoms and No Word Finding Difficulty
Psych: Calm and Intact Judgement/Insight
Labs
Lab Results
WBC 1.9 10^3/uL (4.8-10.8) L* 11/06/24 07:21
RBC 3.08 10^6/uL (4.20-5.40) L 11/06/24 07:21
Hgb 9.5 g/dL (12.0-16.0) L 11/06/24 07:21
Hct 28.2 % (37.0-47.0) L 11/06/24 07:21
MCV 91.6 fL (81.0-99.0) 11/06/24 07:21
MCH 30.8 pg (27.0-31.0) 11/06/24 07:21
MCHC 33.7 g/dL (33.0-37.0) 11/06/24 07:21
RDW 14.0 % (11.5-14.5) 11/06/24 07:21
Plt Count 140 10^3/uL (130-400) 11/06/24 07:21
MPV 10.8 fL (7.4-10.4) H 11/06/24 07:21
Abs Immat Gran (auto) 0.0 10^3/uL (0-0.05) 11/06/24 07:21
Absolute Neuts (auto) 1.4 10^3/uL (1.4-6.5) 11/06/24 07:21
Absolute Lymphs (auto) 0.2 10^3/uL (1.2-3.4) L 11/06/24 07:21
Absolute Monos (auto) 0.3 10^3/uL (0.1-0.6) 11/06/24 07:21
Absolute Eos (auto) 0.0 10^3/uL (0-0.7) 11/06/24 07:21
Absolute Basos (auto) 0.0 10^3/uL (0-0.2) 11/06/24 07:21
Immature Gran % 0.5 % (0-0.5) 11/06/24 07:21
Neutrophils % 74.2 % (42.2-75.2) 11/06/24 07:21
Lymphocytes % 9.2 % (20.5-51.1) L 11/06/24 07:21
Monocytes % 15.1 % (1.7-9.3) H 11/06/24 07:21
Eosinophils % 0.5 % (0-6) 11/06/24 07:21
Basophils % 0.5 % (0-2) 11/06/24 07:21
Creatinine 0.5 mg/dL (0.6-1.0) L 11/06/24 07:21
Vital Signs
Vital Signs
Temp Pulse Resp BP Pulse Ox
98.6 F 72 16 138/63 92
11/06/24 11:00 11/06/24 11:00 11/06/24 11:00 11/06/24 11:00 11/06/24 11:00
[2024-11-06 17:24] LABS: Magnesium 1.8 mg/dl (1.6-2.3)
[2024-11-06 19:30] VITALS: BP 135/60
[2024-11-06] MEDS: TESSALON PERLES 100 MG PO (21:20)
[2024-11-06 22:50] VITALS: BP 135/64
[2024-11-07 03:23] VITALS: BP 139/64
[2024-11-07 05:59] VITALS: BMI 26.3
[2024-11-07 07:00] VITALS: BP 141/69
[2024-11-07] MEDS: LYRICA 100 MG PO (07:24)
[2024-11-07] MEDS: HEPARIN 5000 UNITS SC ×2 (07:24→19:54)
[2024-11-07] MEDS: NORVASC 5 MG PO (07:24)
[2024-11-07] MEDS: LYRICA 50 MG PO ×2 (07:24→19:54)
[2024-11-07] MEDS: TESSALON PERLES 100 MG PO (07:24)
[2024-11-07] MEDS: LEXAPRO 10 MG PO (07:24)
[2024-11-07] MEDS: NSS with KCL 40 MEQ IV (07:53)
[2024-11-07] MEDS: ROBITUSSIN DM 10 ML PO (08:09)
--- NOTE | 2024-11-07 08:41 | PTOTSP ---
Speech-Language Evaluation
Pt at an elevated risk of aspiration given recent diagnosis of right base of tongue cancer, TIA, odynophagia with poor oral intake, and recent chemo-radiation therapy. Pt accepted only liquid PO trials (declined puree solids due to n/v and
odynophagia). Pt managed thin liquids with no overt s/sx of aspiration. Pt care team considering PEG in order to maintain nutrition due to poor oral intake. Pt was participating in outpatient speech-language therapy prior to admission with focus on
swallowing exercises to preserve swallow function.
Recommend:
1. IDDSI 0 Thin liquids
2. Medication as best tolerated
3. Standard aspiration precautions
4. Trials of puree solids, if tolerated
5. Dysphagia therapy for swallow preservation
6. MUSIC INSTRUCTOR to follow for dysphagia tx
[2024-11-07 09:12] LABS: ALT (SGPT) 14 U/L (0-35); AST (SGOT) 22 U/L (14-36); Albumin 3.4 g/dl (3.5-5.0); Alkaline Phosphatase 64 U/L (38-126); Blood Urea Nitrogen 7 mg/dl (7-17); Calcium 8.3 mg/dl (8.4-10.2); Carbon Dioxide 17 mmol/L (22-30); Chloride 114 mmol/L (98-107); Estimated Creatinine Clearance 59 ml/min; Glucose 89 mg/dl (70-99); Magnesium 1.4 mg/dl (1.6-2.3); Potassium 3.6 mmol/L (3.5-5.1); Sodium 141 mmol/L (135-145); Total Protein 6.1 g/dl (6.3-8.2); eGFR > 60.00
[2024-11-07 09:13] LABS: Hematocrit 28.2 % (37.0-47.0); Hemoglobin 9.8 g/dL (12.0-16.0); Mean Corp Hgb Conc. 34.8 g/dL (33.0-37.0); Mean Corpuscular Volume 92.2 fL (81.0-99.0); Platelet Count 139 10^3/uL (130-400); Red Cell Dist. Width 14.3 % (11.5-14.5)
[2024-11-07 09:27] LABS: INR 1.28; PT 16.3 Sec (11.4-14.6)
[2024-11-07 09:28] LABS: APTT 30.7 Sec (23.4-35.0)
--- NOTE | 2024-11-07 10:36 | W.PN.HOSP.TC ---
Today's Communication/Plan
-
Replace Mg
c/w IVF with potassium
Speech evaluation
Chest x ray for cough
Assessment / Plan
Assessment / Plan
Physical Exam
General: Conversant; No Fever or Chills
HEENT: Normocephalic, Anicteric, Moist mucous membranes, PERRLA, [place] Conjunctivae, No Ptosis and Other (Chronic sore right side tongue into neck due to squamous cell cancer, chronic adenopathy right anterior cervical chain); No Pharyngeal Erythema
Respiratory: Clear; No Wheezes, Rales or Rhonchi
Cardiac: S1/S2 and Regular Rhythm;
GI: Soft, Non Tender, Non Distended, Normal Bowel Sounds
Genito-urinary: No Salgado
Musculoskeletal: No Clubbing, No Cyanosis and No Edema
Skin: Warm and Dry; No Rash
Neuro: AO x 3, No Motor Deficits, Nonfocal/grossly intact. No Sensory Deficits; No Slurred Speech, Facial Droop, Tremors or Sedated
Psych: Calm
A/P
#Intractable nausea vomiting due to chemo/radiation, resolved
No relief with Compazine and Zofran at home
c/w IVF
replace K, Mg
- As needed Phenergan for nausea vomiting if no relief
# Difficulty swallowing with weight loss/ intolerance to oral intake
d/w pt, her , they wanted GI evaluation for feeding tube placement.
Consulted GI, will follow
#Leukopenia/anemia in setting of chemotherapy for Squamous cell tongue cancer
WBC 1.9 absolute neutrophils 1.4
Hgb around 9
Consulted oncology, Primary doctor Dr Juarez, c/w supprotive care
#Acute Hypokalemia/ hypomagnesemia
Hypocalcemia
c/w replacement
Recheck blood work in am
# chronic cough, unable to clear secretion
Cant swallow pills well
will do Robitussin solution
Check chest x ray
#HTN
Continue Norvasc 5 mg daily with hold parameters
#HLD
- Hold Lipitor due to vomiting
#Anxiety
Continue Lexapro 10 mg daily
#History of breast cancer with right sided lumpectomy/radiation 2011
DVT prophylaxis
Subcu heparin
Total time spent to see the patient, examine the patient, review data and lab results, discuss treatment plan with patient, nursing staff around 55 minutes
Anticipated Discharge: > 48 hours
Subjective/Interval History
-
Date of Service: November 07, 2024
She wants cough medicine solution
No abdominal pain
Objective Data
-
Labs:
Laboratory Results
11/07/24 11/07/24
08:39 08:40
WBC 2.0 L*
Hgb 9.8 L
Hct 28.2 L
Plt Count 139
PT 16.3 H
INR 1.28
APTT 30.7
Sodium 141
Potassium 3.6
Chloride 114 H
Carbon Dioxide 17 L
BUN 7
Creatinine 0.4 L
Glucose 89
Calcium 8.3 L
Total Bilirubin 0.5
AST 22
ALT 14
Alkaline Phosphatase 64
Vital Signs:
Vital Signs
Temp Pulse Resp BP Pulse Ox
98.6 F 72 12 141/69 91
11/07/24 07:00 11/07/24 07:00 11/07/24 07:00 11/07/24 07:00 11/07/24 07:00
I&O
11/06/24 11/07/24 11/08/24
06:59 06:59 06:59
Intake Total 1440 / 1440 950 / 950
Balance 1440 / 1440 950 / 950
[2024-11-07 11:00] VITALS: BP 147/70
[2024-11-07] MEDS: MAGNESIUM SULFATE 100 IV (11:19)
[2024-11-07] MEDS: NSS with KCL 40 MEQ 1000 IV (11:20)
[2024-11-07 11:32] VITALS: BMI 26.3
[2024-11-07] MEDS: ROXICODONE 5 MG PO ×2 (11:39→17:21)
[2024-11-07 11:46] LABS: Nucleated Red Blood Cells % 0 %
[2024-11-07 15:00] VITALS: BP 134/68
[2024-11-07 19:00] VITALS: BP 144/64
[2024-11-07] MEDS: LYRICA PO ×2 (19:54→19:59)
[2024-11-07 23:00] VITALS: BP 142/69
[2024-11-08] MEDS: NSS with KCL 40 MEQ 1000 IV ×2 (01:37→18:05)
[2024-11-08] MEDS: ROXICODONE 5 MG PO ×2 (02:19→18:26)
[2024-11-08 03:00] VITALS: BP 157/75
[2024-11-08 05:00] VITALS: BMI 25.6
[2024-11-08 07:26] VITALS: BP 149/89
[2024-11-08 08:19] LABS: Hematocrit 30.8 % (37.0-47.0); Hemoglobin 10.3 g/dL (12.0-16.0); Mean Corp Hgb Conc. 33.4 g/dL (33.0-37.0); Mean Corpuscular Volume 91.7 fL (81.0-99.0); Red Cell Dist. Width 14.8 % (11.5-14.5)
[2024-11-08 08:26] LABS: ALT (SGPT) 14 U/L (0-35); AST (SGOT) 25 U/L (14-36); Albumin 3.7 g/dl (3.5-5.0); Alkaline Phosphatase 72 U/L (38-126); Blood Urea Nitrogen 4 mg/dl (7-17); Calcium 8.9 mg/dl (8.4-10.2); Carbon Dioxide 19 mmol/L (22-30); Chloride 111 mmol/L (98-107); Estimated Creatinine Clearance 53 ml/min; Glucose 78 mg/dl (70-99); Magnesium 1.2 mg/dl (1.6-2.3); Potassium 4.1 mmol/L (3.5-5.1); Sodium 140 mmol/L (135-145); Total Protein 6.7 g/dl (6.3-8.2); eGFR > 60.00
[2024-11-08 09:57] LABS: Nucleated Red Blood Cells % 0 %; Platelet Count 167 10^3/uL (130-400)
[2024-11-08] MEDS: LYRICA 100 MG PO ×2 (10:21→20:18)
[2024-11-08] MEDS: LYRICA 50 MG PO ×2 (10:21→20:18)
[2024-11-08] MEDS: MAGNESIUM SULFATE 100 IV (10:22)
[2024-11-08] MEDS: HEPARIN 5000 UNITS SC ×2 (10:22→20:19)
[2024-11-08] MEDS: NORVASC 5 MG PO (10:22)
[2024-11-08] MEDS: LEXAPRO 10 MG PO (10:22)
--- NOTE | 2024-11-08 10:44 | W.PN.GI.CBS2 ---
Addendum entered and electronically signed by Angel Obrien MD 11/08/24 17:24:
I saw and examined the patient.
The RESIDENTIAL TREATMENT COUNSELOR or PA's note was reviewed and I agree with the note.
Comment:
Pt with less swallowing difficulty with flavored lyrica
alert oriented
neutropenic
plan:
continue Po as tolerated
continue flavored lyrica
follow wbc.
Original Note:
Today's Communication / Plan
-
pt with continue pain with swallowing issues
now noted with neutropenia/leukopenia cont to trend
reviewed with Dr. Valdes and Dr. Childs oncology to add G-CSF
will resume magic mouthwash as tolerated viscus lidocaine at home -- possible interaction with sulfa- I reviewed with pharmacy ok to proceed
will change to pureed diet with supplement
I reviewed with patient and spouse-- unable to place peg until neutropenia improves
discussed alterative of TPN with infection risk, DHT with tongue irritation vs cont trial for oral diet
cont IVF for hydration
Assessment / Plan
-
Pt is an 83yo with hx HTN, hyperlipidemia, anxiety, breast CA, TIA, pseudocholinesterase deficiency neuropathy, and squamous cell CA of tongue. She completed 7 weeks of chemo and radiation earlier this week that she started in August. She admits
she began with some odynophagia several weeks ago that progressively got worse with treatment and the week prior to admission she was vomiting smoothies with minimal intakes. She had tried viscus lidocaine without improvement. She admits to about
15 lbs wt loss with treatment. She was followed by Dr. Juarez and aleks radiation. Pt also with electrolyte imbalance on admission.
-odynophagia/dysphagia
-squamous cell ca of tongue with recent chemo and radiation
-neutropenia/leukopenia
-wt loss
-electrolyte imbalance hypokalemia, hypomagnesemia
other med problems:
HTN, hyperlipidemia, anxiety, breast CA, TIA, pseudocholinesterase deficiency neuropathy
PLAN:
pt with continue pain with swallowing issues
now noted with neutropenia/leukopenia cont to trend
reviewed with Dr. Valdes and Dr. Childs oncology to add G-CSF
will resume magic mouthwash as tolerated viscus lidocaine at home -- possible interaction with sulfa- I reviewed with pharmacy ok to proceed
will change to pureed diet with supplement
I reviewed with patient and spouse-- unable to place peg until neutropenia improves
discussed alterative of TPN with infection risk, DHT with tongue irritation vs cont trial for oral diet
cont IVF for hydration
Subjective
Subjective
Date of Service: November 08, 2024
minimal oral intakes, still with pain with swallowing and now with neutropenia
Objective
Data Reviewed
Laboratory Data:
Laboratory Results
11/08/24 07:01
11/08/24 07:01
Laboratory Results
PT 16.3 Sec (11.4-14.6) H 11/07/24 08:40
INR 1.28 11/07/24 08:40
APTT 30.7 Sec (23.4-35.0) 11/07/24 08:40
Magnesium 1.2 mg/dl (1.6-2.3) L 11/08/24 07:01
Total Bilirubin 0.7 mg/dl (0.2-1.3) 11/08/24 07:01
AST 25 U/L (14-36) 11/08/24 07:01
ALT 14 U/L (0-35) 11/08/24 07:01
Alkaline Phosphatase 72 U/L (38-126) 11/08/24 07:01
Vital Signs and I&O:
Vital Signs
Temp Pulse Resp BP Pulse Ox
99.0 F 110 18 149/89 95
11/08/24 07:26 11/08/24 07:26 11/08/24 07:26 11/08/24 07:26 11/08/24 07:26
I&O
11/07/24 11/08/24 11/09/24
06:59 06:59 06:59
Intake Total 950 / 950 1020 / 1020
Balance 950 / 950 1020 / 1020
Physical Exam
Physical Exam
HEENT: Anicteric and Moist mucous membranes
Cardiology: Other (tachy around 100)
Pulmonary: Clear
GI: Soft, Non Distended and Non Tender
Extremities: No Edema
Neuro: Non Focal
[2024-11-08 11:33] VITALS: BP 136/75
--- NOTE | 2024-11-08 11:39 | CM ---
Chart reviewed and patient is for possible PEG placement when patient stabilizes, patient is currently ambulating 100 feet with supervision, home with spouse when stable and possible Enteral feeds.
Plan; Home, needs follow when PEG tube placed.
[2024-11-08] MEDS: MAGIC OR MIRACLE MOUTHWASH 5 ML PO ×2 (11:53→18:05)
[2024-11-08] MEDS: GRANIX 300 MCG SC (11:53)
--- NOTE | 2024-11-08 12:17 | W.PN.ONC2 ---
Today's Communication / Plan
-
Start Granix for neutropenia
Start loratadine for bone pain
Anticipate PEG tube placement for feeding intolerance once neutropenia resolves
Pain control, anti-emetics PRN
Impression
Impression
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 On presentation, patient was
found to be anemic, leukopenic, hypokalemic, and hypomagnesemic.
Feeding intolerance - Feeling slightly better today, though continues to have decreased PO intake due to odynophagia, dysphagia
Leukopenia - WBCs 1.6, trending down from 1.9-2.0 in recent days
Neutropenia - Abs neutrophils 0.9, trending down from 1.4 in recent days
Anemia - Hgb 10.3, low but stable
Plan
Plan
Leukopenia/Neutropenia/Anemia
Start Granix to stimulate neutrophil proliferation to allow for PEG tube placement
Start loratadine to prevent Granix-induced bone pain
Monitor CBC, clinical status
Feeding intolerance
Per GI, plan for PEG tube placement once neutropenia resolves
Pain control, anti-emetics PRN
PO diet as tolerated for now
Monitor caloric intake
Given completion of chemo/radiation last week, anticipate side effects to improve over the next week
Subjective/Objective
Chief Complaint
Nausea, vomiting, decreased oral intake
Subjective
Patient is feeling okay, better than recent days. Throat pain is localized to the right side and 0-1/10 in intensity at rest, increasing to 2/10 with swallowing. She feels her pain is well-controlled with oxycodone. Patient has not eaten for 4-5
days. Denies nausea, vomiting, lightheadedness, dizziness, syncope, or dyspnea. Discussed with patient her low neutrophil count, which must be addressed prior to PEG placement.
Vital Signs:
Vital Signs
Temp Pulse Resp BP Pulse Ox
98.9 F 78 17 136/75 96
11/08/24 11:33 11/08/24 11:33 11/08/24 11:33 11/08/24 11:33 11/08/24 11:33
Lab Results:
Laboratory Data
WBC 1.6 10^3/uL (4.8-10.8) L* 11/08/24 07:01
Hgb 10.3 g/dL (12.0-16.0) L 11/08/24 07:01
Plt Count 167 10^3/uL (130-400) D 11/08/24 07:01
PT 16.3 Sec (11.4-14.6) H 11/07/24 08:40
INR 1.28 11/07/24 08:40
APTT 30.7 Sec (23.4-35.0) 11/07/24 08:40
eGFR > 60.00 11/08/24 07:01
Physical Exam
HEENT: No Jaundice
Cardiology: Other (Non-tachycardic)
Extremities: Pulses Present; No Edema
Neuro: Non Focal
Review of Systems
Review of Systems
Constitutional: Denies Fever or Fatigue
Head: Reports Other (Odynophagia, dysphagia)
Respiratory: Denies Dyspnea
Gastrointestinal: Denies Nausea/Vomiting or Diarrhea
Orders
Orders
Start Granix 30 mcg SC qd for neutropenia
Start loratadine 10 mg PO qd for prevention of Granix-induced bone pain
[2024-11-08] MEDS: CLARITIN 10 MG PO (14:45)
--- NOTE | 2024-11-08 14:51 | W.PN.HOSP.TC ---
Today's Communication/Plan
-
G-CSF
PEG tube placement timing to be determined
Assessment / Plan
Assessment / Plan
Physical Exam
General: Conversant; No Fever or Chills
HEENT: Normocephalic, Anicteric, Moist mucous membranes, PERRLA, [place] Conjunctivae, No Ptosis and Other (Chronic sore right side tongue into neck due to squamous cell cancer, chronic adenopathy right anterior cervical chain); No Pharyngeal Erythema
Respiratory: Clear; No Wheezes, Rales or Rhonchi
Cardiac: S1/S2 and Regular Rhythm;
GI: Soft, Non Tender, Non Distended, Normal Bowel Sounds
Genito-urinary: No Salgado
Musculoskeletal: No Clubbing, No Cyanosis and No Edema
Skin: Warm and Dry; No Rash
Neuro: AO x 3, No Motor Deficits, Nonfocal/grossly intact. No Sensory Deficits; No Slurred Speech, Facial Droop, Tremors or Sedated
Psych: Calm
A/P
#Intractable nausea vomiting due to chemo/radiation, resolved
No relief with Compazine and Zofran at home
c/w IVF
replace K, Mg
- As needed Phenergan for nausea vomiting if no relief
# Difficulty swallowing with weight loss/ intolerance to oral intake
d/w pt, her , they wanted GI evaluation for feeding tube placement.
Consulted GI, will follow
PEG tube placmeent once neutropenia resolves
#Leukopenia/anemia in setting of chemotherapy for Squamous cell tongue cancer
WBC 1.9 absolute neutrophils 1.4
Hgb around 9
Consulted oncology, Primary doctor Dr Juarez, c/w supportive care
G-CSF today
#Acute Hypokalemia/ hypomagnesemia
Hypocalcemia
c/w replacement
Recheck blood work in am
# chronic cough, unable to clear secretion
Cant swallow pills well
will do Robitussin solution
no fever, productive sputum
#HTN
Continue Norvasc 5 mg daily with hold parameters
#HLD
- Hold Lipitor due to vomiting
#Anxiety
Continue Lexapro 10 mg daily
#History of breast cancer with right sided lumpectomy/radiation 2011
DVT prophylaxis
Subcu heparin
Total time spent on today's encounter was 51 minutes which included time spent in counseling the patient/family regarding diagnosis and treatment plan as listed above, goals of care, and symptom management. Case was discussed with nursing staff,
specialists, and care coordinators/case management. All labs and imaging personally reviewed by me. Remainder the time spent in detailed review of previous records, lab data, imaging, and other medical provider documentation.
Anticipated Discharge: > 48 hours
Subjective/Interval History
-
Date of Service: November 08, 2024
neutropenic
Objective Data
-
Labs:
Laboratory Results
11/08/24
07:01
WBC 1.6 L*
Hgb 10.3 L
Hct 30.8 L
Plt Count 167 D
Sodium 140
Potassium 4.1
Chloride 111 H
Carbon Dioxide 19 L
BUN 4 L
Creatinine 0.4 L
Glucose 78
Calcium 8.9
Total Bilirubin 0.7
AST 25
ALT 14
Alkaline Phosphatase 72
Vital Signs:
Vital Signs
Temp Pulse Resp BP Pulse Ox
98.9 F 78 17 136/75 96
11/08/24 11:33 11/08/24 11:33 11/08/24 11:33 11/08/24 11:33 11/08/24 11:33
I&O
11/07/24 11/08/24 11/09/24
06:59 06:59 06:59
Intake Total 950 / 950 1020 / 1020
Balance 950 / 950 1020 / 1020
Review of Systems
-
History Source: Patient
All other systems: Not reviewed unless documented
Data Reviewed
-
CT Scan: Report Reviewed by me
Labs: Labs Reviewed by me
[2024-11-08 15:24] VITALS: BP 142/72
[2024-11-08 19:27] VITALS: BP 120/72
[2024-11-08] MEDS: NSS (PRESERVATIVE FREE) 10 ML IV (20:19)
[2024-11-08] MEDS: PROTONIX IV 40 MG IV (20:19)
[2024-11-09] VITALS (9 sets, daily range): BP systolic 114–155; BP diastolic 57–84; BMI 25.5
[2024-11-09] MEDS: ROXICODONE 5 MG PO ×2 (01:27→18:20)
[2024-11-09] MEDS: HEPARIN 5000 UNITS SC ×2 (07:57→19:48)
[2024-11-09] MEDS: GRANIX 300 MCG SC (07:57)
[2024-11-09] MEDS: CLARITIN 10 MG PO (07:57)
[2024-11-09] MEDS: NSS (PRESERVATIVE FREE) 10 ML IV ×2 (07:58→19:49)
[2024-11-09] MEDS: LEXAPRO 10 MG PO (07:58)
[2024-11-09] MEDS: LYRICA 100 MG PO ×2 (07:58→19:50)
[2024-11-09] MEDS: NORVASC 5 MG PO (07:58)
[2024-11-09] MEDS: LYRICA 50 MG PO ×2 (07:58→19:50)
[2024-11-09] MEDS: MAGIC OR MIRACLE MOUTHWASH 5 ML PO ×4 (07:58→19:49)
[2024-11-09] MEDS: PROTONIX IV 40 MG IV ×2 (07:58→19:48)
--- NOTE | 2024-11-09 08:45 | PN.CDI ---
CDI
- -
CDI:
Physician Documentation Request
Admit Date: 11/05/24 14:14
Dear Doctor Naz,
Patient admitted with intractable nausea vomiting due to chemo/radiation.
11/08 Nutrition note, 'Patient meets AND and ASPEN criteria for severe protein calorie malnutrition of chronic disease due to a loss of more than 7.5% BW loss over 3 months and less than 75% of estimated nutrition needs met for more than 1 month.'
Please provide in your note the diagnosis associated with patient's nutritional findings and your assessment:
Severe protein calorie malnutrition
Other (please specify)
[place] Criteria ([facility] Hospitalist 2017)
2 or more criteria must be present for either
non severe or severe malnutrition
Note that the criteria differs related to the
presence of an acute or chronic illness
Chronic Illness
Energy Intake Non Severe: <75% for >1 month
Severe: <75% for >1 month
Weight Loss Non Severe: 5% over 1 month
7.5% over 3 months
10% over 6 months
20% over 1 year
Severe: >5% over 1 month
>7.5% over 3 months
>10% over 6 months
>20% over 1 year
Body Fat Non Severe: Mild Loss
Severe: Severe Loss
Muscle Mass Non Severe: Mild Loss
Severe: Severe Loss
Fluid Accumulation Non Severe: Mild Accumulation
Severe: Moderate to severe
accumulation
Reduced Hand Finisher Strength Non Severe: N/A
Severe: Measurably reduced
Use of terms such as suspected, likely, concern for, or probable (associated with a specific diagnosis that is being evaluated, monitored, or treated as if it exists) are acceptable and can be coded in the inpatient setting, when documented at the
time of discharge.
Thank you,
Tika RUBALCAVA,RN,CCDS
CDI Specialist
Available via tiger text
Please use your independent medical judgment in providing your response.
[2024-11-09] MEDS: DULCOLAX 10 MG RECTAL (09:33)
[2024-11-09 09:52] LABS: Blood Urea Nitrogen 2 mg/dl (7-17); Calcium 8.5 mg/dl (8.4-10.2); Carbon Dioxide 17 mmol/L (22-30); Chloride 108 mmol/L (98-107); Estimated Creatinine Clearance 53 ml/min; Glucose 72 mg/dl (70-99); Potassium 3.8 mmol/L (3.5-5.1); Sodium 139 mmol/L (135-145); eGFR > 60.00
[2024-11-09 10:12] LABS: Hematocrit 30.9 % (37.0-47.0); Hemoglobin 10.6 g/dL (12.0-16.0); Mean Corp Hgb Conc. 34.3 g/dL (33.0-37.0); Mean Corpuscular Volume 93.4 fL (81.0-99.0); Platelet Count 170 10^3/uL (130-400); Red Cell Dist. Width 15.4 % (11.5-14.5)
--- NOTE | 2024-11-09 10:12 | W.PN.ONC2 ---
Today's Communication / Plan
-
Monitor response to filgrastim - WBCs increased to 6.4, abs neutrophils PENDING
Possible PEG tube placement pending status of neutropenia
Pain control, anti-emetics PRN
Impression
Impression
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 On presentation, patient was
found to be anemic, leukopenic, hypokalemic, and hypomagnesemic.
Feeding intolerance - Continues to have minimal PO intake due to odynophagia, dysphagia
Responding to filgrastim initiated yesterday (11/08) for neutropenia/leukopenia, with WBCs increased
Leukopenia - WBCs 6.4, increased from 1.6 yesterday
Neutropenia - Abs neuts PENDING, 0.9 yesterday
Anemia - Hgb 10.6, stable
Plan
Plan
Leukopenia/Neutropenia/Anemia
Continue Granix to stimulate neutrophil proliferation to allow for PEG tube placement
Continue loratadine to prevent Granix-induced bone pain
Monitor CBC, clinical status
Feeding intolerance
Per GI, plan for PEG tube placement once neutropenia resolves
Pain control, anti-emetics PRN
PO diet as tolerated for now
Monitor caloric intake
Continue to monitor progression of symptoms (odynophagia, dysphagia) following completion of chemo/radiation last week
Subjective/Objective
Chief Complaint
Nausea, vomiting, feeding intolerance
Subjective
Patient is seen while sitting in a chair on HD #5. Patient is feeling okay. She tried eating yogurt last night, but she experienced 7-8/10 pain with swallowing. The pain continues to prevent her from eating. Patient has no pain at rest, with only
minimal (1-2/10) pain with swallowing water/saliva. No pain in her pelvis or thighs. Denies nausea, vomiting, f/f/c, lightheadedness, dizziness, tachycardia, or palpitations.
Vital Signs:
Vital Signs
Temp Pulse Resp BP Pulse Ox
98.5 F 83 16 144/76 94
11/09/24 07:54 11/09/24 07:54 11/09/24 07:54 11/09/24 07:54 11/09/24 07:54
Lab Results:
Laboratory Data
WBC 1.6 10^3/uL (4.8-10.8) L* 11/08/24 07:01
Hgb 10.3 g/dL (12.0-16.0) L 11/08/24 07:01
Plt Count 167 10^3/uL (130-400) D 11/08/24 07:01
PT 16.3 Sec (11.4-14.6) H 11/07/24 08:40
INR 1.28 11/07/24 08:40
APTT 30.7 Sec (23.4-35.0) 11/07/24 08:40
eGFR > 60.00 11/09/24 07:58
Physical Exam
Cardiology: Other (Non-tachycardic)
Extremities: Pulses Present, No C/C/E and Other (No pallor. Warm)
Neuro: Non Focal
Review of Systems
Review of Systems
Constitutional: Denies Fever, Fatigue or Other (Denies chills)
Head: Reports Other (Dysphagia, odynophagia)
Respiratory: Denies Dyspnea
Cardiovascular: Reports Other (Denies tachycardia, lightheadedness, or dizziness); Denies Palpitations
Gastrointestinal: Denies Nausea/Vomiting
Orders
Orders
Orders From Last 24 Hours
11/08/24 13:00
Loratadine [Claritin] 10 mg PO DAILY
[2024-11-09 12:15] LABS: Magnesium 1.4 mg/dl (1.6-2.3)
[2024-11-09 13:33] LABS: Absolute Neutrophils -Man Diff 5.3 10^3/uL (1.4-6.5)
[2024-11-09 13:34] LABS: Anisocytosis Slight; Normal RBC Morphology No; Platelets Checked Yes
[2024-11-09 13:35] LABS: Acanthocytes Slight; Hypochromasia 1+; Ovalocytes Slight; Polychromasia Slight; Total Cells Counted 100
--- NOTE | 2024-11-09 14:00 | W.PN.HOSP.TC ---
Today's Communication/Plan
-
Monitor WBC and PO tolerability
PEG tube if needed
Assessment / Plan
Assessment / Plan
Physical Exam
General: Conversant; No Fever or Chills
HEENT: Normocephalic, Anicteric, Moist mucous membranes, PERRLA, [place] Conjunctivae, No Ptosis and Other (Chronic sore right side tongue into neck due to squamous cell cancer, chronic adenopathy right anterior cervical chain); No Pharyngeal Erythema
Respiratory: Clear; No Wheezes, Rales or Rhonchi
Cardiac: S1/S2 and Regular Rhythm;
GI: Soft, Non Tender, Non Distended, Normal Bowel Sounds
Genito-urinary: No Salgado
Musculoskeletal: No Clubbing, No Cyanosis and No Edema
Skin: Warm and Dry; No Rash
Neuro: AO x 3, No Motor Deficits, Nonfocal/grossly intact. No Sensory Deficits; No Slurred Speech, Facial Droop, Tremors or Sedated
Psych: Calm
A/P
#Intractable nausea vomiting due to chemo/radiation, resolved
No relief with Compazine and Zofran at home
c/w IVF
replace K, Mg
- As needed Phenergan for nausea vomiting if no relief
# Difficulty swallowing with weight loss/ intolerance to oral intake
d/w pt, her , they wanted GI evaluation for feeding tube placement.
Consulted GI, will follow
PEG tube placement if not able to tolerate diet
#Leukopenia/anemia in setting of chemotherapy for Squamous cell tongue cancer
Hgb around 9
Consulted oncology, Primary doctor Dr Juarez, c/w supportive care
s/p G-CSF
-WBC responded well
#Acute Hypokalemia/ hypomagnesemia
Hypocalcemia
c/w replacement
Recheck blood work in am
# chronic cough, unable to clear secretion
Cant swallow pills well
will do Robitussin solution
no fever, productive sputum
#HTN
Continue Norvasc 5 mg daily with hold parameters
#HLD
- Hold Lipitor due to vomiting
#Anxiety
Continue Lexapro 10 mg daily
#History of breast cancer with right sided lumpectomy/radiation 2011
DVT prophylaxis
Subcu heparin
Total time spent on today's encounter was 51 minutes which included time spent in counseling the patient/family regarding diagnosis and treatment plan as listed above, goals of care, and symptom management. Case was discussed with nursing staff,
specialists, and care coordinators/case management. All labs and imaging personally reviewed by me. Remainder the time spent in detailed review of previous records, lab data, imaging, and other medical provider documentation.
Anticipated Discharge: 24 - 48 hours
Subjective/Interval History
-
Date of Service: November 09, 2024
no acute events; WBC went up today
Objective Data
-
Labs:
Laboratory Results
11/09/24
07:58
WBC 6.4
Hgb 10.6 L
Hct 30.9 L
Plt Count 170
Sodium 139
Potassium 3.8
Chloride 108 H
Carbon Dioxide 17 L
BUN 2 L
Creatinine 0.4 L
Glucose 72
Calcium 8.5
Vital Signs:
Vital Signs
Temp Pulse Resp BP Pulse Ox
97.9 F 78 16 145/77 97
11/09/24 11:35 11/09/24 11:35 11/09/24 11:35 11/09/24 11:35 11/09/24 11:35
I&O
11/08/24 11/09/24 11/10/24
06:59 06:59 06:59
Intake Total 1020 / 1020 1540 / 1540
Balance 1020 / 1020 1540 / 1540
Review of Systems
-
History Source: Patient
All other systems: Not reviewed unless documented
Data Reviewed
-
CT Scan: Report Reviewed by me
Labs: Labs Reviewed by me
--- NOTE | 2024-11-09 14:48 | CM ---
Chart reviewed and per physician notes patient for possible peg today, plan is to home with enteral feeds and visiting nurses, options reviewed and patient and spouse have selected [facility] and [facility], referral sent to both. GI to write orders for
tube feeds.
Plan; Home with [facility] and [facility].
--- NOTE | 2024-11-09 15:08 | VNURNOTE ---
Home Health Liaison met with patient's spouse at bedside to discuss [facility] nurse/therapy, visits, schedule and homebound status. The patient was off the floor, getting PEG placed. Spouse is agreeable and understands that visits at home will be 2-3
x per week to assess and teach medical management. Spouse is aware that [facility] will contact them for start of care in 1-2 days after discharge from . Provided contact number for [facility]. Explained need for HOB elevation during and after feeds.
Offered to arrange a hospital bed. Spouse stated not needed, pt has a Temperpedic bed at home that elevates HOB.
PM [facility] referral completed in [facility].
[facility] can see patient for same day visit if pt DC'ed by 1100.
[2024-11-09] MEDS: TYLENOL 650 MG PO (15:36)
[2024-11-09] MEDS: MAGNESIUM SULFATE 100 IV (16:32)
[2024-11-10] MEDS: ROXICODONE 5 MG PO ×3 (03:32→21:31)
[2024-11-10 03:55] VITALS: BP 118/62
[2024-11-10 06:00] VITALS: BMI 25.2
[2024-11-10] MEDS: GRANIX 300 MCG SC (07:39)
[2024-11-10] MEDS: CLARITIN 10 MG PO (07:39)
[2024-11-10] MEDS: LYRICA 100 MG PO ×2 (07:40→21:13)
[2024-11-10] MEDS: HEPARIN 5000 UNITS SC ×2 (07:40→21:14)
[2024-11-10] MEDS: LEXAPRO 10 MG PO (07:40)
[2024-11-10] MEDS: LYRICA 50 MG PO ×2 (07:40→21:13)
[2024-11-10] MEDS: NORVASC 5 MG PO (07:40)
[2024-11-10] MEDS: NSS (PRESERVATIVE FREE) 10 ML IV ×2 (07:41→21:15)
[2024-11-10] MEDS: MAGIC OR MIRACLE MOUTHWASH 5 ML PO ×3 (07:41→21:19)
[2024-11-10] MEDS: PROTONIX IV 40 MG IV ×2 (07:41→21:14)
[2024-11-10 07:59] VITALS: BP 135/71
[2024-11-10 08:58] LABS: Hematocrit 33.6 % (37.0-47.0); Hemoglobin 11.5 g/dL (12.0-16.0); Mean Corp Hgb Conc. 34.2 g/dL (33.0-37.0); Mean Corpuscular Volume 92.1 fL (81.0-99.0); Platelet Count 188 10^3/uL (130-400); Red Cell Dist. Width 15.8 % (11.5-14.5)
[2024-11-10 10:02] LABS: ALT (SGPT) 12 U/L (0-35); AST (SGOT) 24 U/L (14-36); Albumin 3.9 g/dl (3.5-5.0); Alkaline Phosphatase 101 U/L (38-126); Blood Urea Nitrogen < 2 mg/dl (7-17); Calcium 8.8 mg/dl (8.4-10.2); Carbon Dioxide 19 mmol/L (22-30); Chloride 105 mmol/L (98-107); Estimated Creatinine Clearance 53 ml/min; Glucose 73 mg/dl (70-99); Potassium 3.4 mmol/L (3.5-5.1); Sodium 138 mmol/L (135-145); Total Protein 6.8 g/dl (6.3-8.2); eGFR > 60.00
--- NOTE | 2024-11-10 11:28 | W.PN.ONC2 ---
Today's Communication / Plan
-
Discontinued Filgrastim following appropriate response
PEG tube placed yesterday
Cleared for discharge from heme-onc perspective
Impression
Impression
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 On presentation, patient was
found to be anemic, leukopenic, hypokalemic, and hypomagnesemic.
Feeding intolerance - Continues to have minimal PO intake due to odynophagia, dysphagia
Responded appropriately to filgrastim for neutropenia/leukopenia, which enabled PEG tube placement yesterday
Leukopenia - WBCs 8.4, increased from 6.4 yesterday
Neutropenia - Abs neuts pending, 5.4 yesterday
Anemia - Hgb 11.5, increasing
Plan
Plan
Leukopenia/Neutropenia/Anemia
Discontinued Granix following appropriate response of WBCs and neutrophils
Continue loratadine to prevent Granix-induced bone pain
Monitor CBC, clinical status
Feeding intolerance
PEG tube placed yesterday, thus enabling tube feeds
Pain control, anti-emetics PRN
PO diet as tolerated for now
Monitor caloric intake
Continue to monitor progression of symptoms (odynophagia, dysphagia) following completion of chemo/radiation 11/01
Disposition: Cleared for discharge from heme-onc perspective
Subjective/Objective
Chief Complaint
Nausea/Vomiting, feeding intolerance
Subjective
Patient seen at the bedside on HD #6. Patient is feeling okay following PEG tube placement yesterday. Patient 'wants to go home.' Tube site is 'irritating' and she has an awareness of it, but no pain. No throat pain at rest, but she does
continue to have pain when she swallows. Patient states pain is well-controlled overall. No nausea, vomiting, lightheadedness, F/F/C, dizziness, dyspnea.
Vital Signs:
Vital Signs
Temp Pulse Resp BP Pulse Ox
98.6 F 85 16 135/71 95
11/10/24 07:59 11/10/24 07:59 11/10/24 07:59 11/10/24 07:59 11/10/24 08:15
Lab Results:
Laboratory Data
WBC 8.4 10^3/uL (4.8-10.8) 11/10/24 07:57
Hgb 11.5 g/dL (12.0-16.0) L 11/10/24 07:57
Plt Count 188 10^3/uL (130-400) 11/10/24 07:57
PT 16.3 Sec (11.4-14.6) H 11/07/24 08:40
INR 1.28 11/07/24 08:40
APTT 30.7 Sec (23.4-35.0) 11/07/24 08:40
eGFR > 60.00 11/10/24 07:57
Physical Exam
GI: Soft and Other (PEG tube site CDI, no erythema, non-TTP)
Extremities: Pulses Present, No C/C/E and Other (Capillary refill <3 seconds)
Neuro: Non Focal
Review of Systems
Review of Systems
Constitutional: Denies Fever, Fatigue or Other (Denies chills)
Head: Reports Other (Continued pain with swallowing)
Respiratory: Denies Dyspnea
Gastrointestinal: Denies Nausea/Vomiting
[2024-11-10 12:01] VITALS: BP 121/62
--- NOTE | 2024-11-10 12:11 | W.PN.HOSP.TC ---
Addendum entered and electronically signed by Carlos Alberto Childs MD 11/10/24 13:44:
patient will need enteral feeds for greater than 90 days.
Original Note:
Today's Communication/Plan
-
PEG tube placed
Initiating TF
F/u Onc, GI , PCP outpt
labs outpt
Assessment / Plan
Assessment / Plan
Physical Exam
General: Conversant; No Fever or Chills
HEENT: Normocephalic, Anicteric, Moist mucous membranes, PERRLA, [place] Conjunctivae, No Ptosis and Other (Chronic sore right side tongue into neck due to squamous cell cancer, chronic adenopathy right anterior cervical chain); No Pharyngeal Erythema
Respiratory: Clear; No Wheezes, Rales or Rhonchi
Cardiac: S1/S2 and Regular Rhythm;
GI: Soft, Non Tender, Non Distended, Normal Bowel Sounds
Genito-urinary: No Salgado
Musculoskeletal: No Clubbing, No Cyanosis and No Edema
Skin: Warm and Dry; No Rash
Neuro: AO x 3, No Motor Deficits, Nonfocal/grossly intact. No Sensory Deficits; No Slurred Speech, Facial Droop, Tremors or Sedated
Psych: Calm
A/P
#Intractable nausea vomiting due to chemo/radiation, resolved
No relief with Compazine and Zofran at home
c/w IVF
replace K, Mg
- As needed Phenergan for nausea vomiting if no relief
# Difficulty swallowing with weight loss/ intolerance to oral intake
d/w pt, her , they wanted GI evaluation for feeding tube placement.
Consulted GI, will follow
PEG tube placement 11/09, tolerated well;
� Initiate tube feeds as per dietary; GI will follow outpatient
#Leukopenia/anemia in setting of chemotherapy for Squamous cell tongue cancer
Hgb around 9
Consulted oncology, Primary doctor Dr Juarez, c/w supportive care
s/p G-CSF
-WBC responded well
- Patient
#Acute Hypokalemia/ hypomagnesemia
Hypocalcemia
c/w replacement
Recheck blood work in am
�Follow-up BMP oupatient
# chronic cough, unable to clear secretion
Cant swallow pills well
will do Robitussin solution
no fever, productive sputum
#HTN
Continue Norvasc 5 mg daily with hold parameters
#HLD
- Statin
#Anxiety
Continue Lexapro 10 mg daily
#History of breast cancer with right sided lumpectomy/radiation 2011
DVT prophylaxis
Subcu heparin
More than 30 minutes spent in discharge including
Final examination of the patient
Summarizing hospital stay
Instructions for continuing care to all relevant caregivers
Preparation of discharge records, prescriptions, and referral forms
Total time spent (in minutes): 36
Anticipated Discharge: Today
Subjective/Interval History
-
Date of Service: November 10, 2024
Tolerated PEG tube placement well, minimal pain. Starting tube feeds.
Objective Data
-
Labs:
Laboratory Results
11/10/24
07:57
WBC 8.4
Hgb 11.5 L
Hct 33.6 L
Plt Count 188
Sodium 138
Potassium 3.4 L
Chloride 105
Carbon Dioxide 19 L
BUN < 2 L
Creatinine 0.4 L
Glucose 73
Calcium 8.8
Total Bilirubin 0.7
AST 24
ALT 12
Alkaline Phosphatase 101
Vital Signs:
Vital Signs
Temp Pulse Resp BP Pulse Ox
97.9 F 78 16 121/62 94
11/10/24 12:01 11/10/24 12:01 11/10/24 07:59 11/10/24 12:01 11/10/24 12:01
I&O
11/09/24 11/10/24 11/11/24
06:59 06:59 06:59
Intake Total 1540 / 1540 240 / 240
Balance 1540 / 1540 240 / 240
Review of Systems
-
History Source: Patient
All other systems: Not reviewed unless documented
Data Reviewed
-
CT Scan: Report Reviewed by me
Labs: Labs Reviewed by me
--- NOTE | 2024-11-10 12:14 | W.DS.TRANS ---
DC Summary - Micro[employer] Specialist
-
Discharge Instructions:
Discharge Diagnosis/Procedures Leukopenia/Neutropenia/Anemia
Feeding intolerance
Diet Other diet
Additional Diets CLD and Tube feeds
Activity As tolerated
Blood Work cbc and cmp with oncology in 5-7 days
Others Tests as per oncology outpatient
Instructions:
Stand-Alone Forms:
Changes to Home Medications: Yes
Discharge Medications:
DC Medications w/original date entered in Send[employer]
amlodipine 5 mg tablet (Norvasc) 5 mg PO DAILY Blood Pressure 11/05/24
atorvastatin 20 mg tablet (Lipitor) 20 mg PO QPM High Cholesterol 11/05/24
escitalopram oxalate 10 mg tablet (Lexapro) 10 mg PO DAILY Depression 11/05/24
lidocaine HCl 2 % mucosal solution (Lidocaine Viscous) 1 applic mucous membrane BIDPRN PRN throat pain 11/05/24
ondansetron HCl 4 mg tablet 4 mg PO Q8HPRN PRN nausea 11/05/24
oxycodone 5 mg tablet 5 mg PO Q6HPRN PRN severe pains 11/05/24
loratadine 10 mg tablet 10 mg PO DAILY 30 days #30 tabs 11/10/24
pantoprazole 40 mg tablet,delayed release 40 mg PO DAILY #30 tabs 11/10/24
pregabalin 50 mg capsule 75 mg (1.5 x 50 mg) PO BID #1 cap 11/10/24
Home Medication Changes
loratadine 10 mg tablet 10 mg PO DAILY 30 days #30 tabs 11/10/24
pantoprazole 40 mg tablet,delayed release 40 mg PO DAILY #30 tabs 11/10/24
Pending Results: No
[2024-11-10] MEDS: KCL ELIXIR 40 MEQ PO (12:40)
--- NOTE | 2024-11-10 13:11 | W.PN.GI.CBS2 ---
Today's Communication / Plan
-
Ok to start TF
Ok from GI perspective for hosp d/c today
Will sign off please call for ?
Assessment / Plan
-
Pt is an 83yo with hx HTN, hyperlipidemia, anxiety, breast CA, TIA, pseudocholinesterase deficiency neuropathy, and squamous cell CA of tongue. She completed 7 weeks of chemo and radiation earlier this week that she started in August. She admits
she began with some odynophagia several weeks ago that progressively got worse with treatment and the week prior to admission she was vomiting smoothies with minimal intakes. She had tried viscus lidocaine without improvement. She admits to about
15 lbs wt loss with treatment. She was followed by Dr. Juarez and aleks marinelli. Pt also with electrolyte imbalance on admission.
Impression
-odynophagia/dysphagia
-squamous cell ca of tongue with recent chemo and radiation
-neutropenia/leukopenia
-wt loss
-electrolyte imbalance hypokalemia, hypomagnesemia
other med problems:
HTN, hyperlipidemia, anxiety, breast CA, TIA, pseudocholinesterase deficiency neuropathy
Plan
- Ok to start TF now
- FU with me in 4wks in office
- C/w magic mouthwash
OK from GI perspective for hosp d/c today
Will sign off please call for ?
Subjective
Subjective
Date of Service: November 10, 2024
She feels well post PEG placement 11/09 no significant pain. Eager to do TF today
Objective
Data Reviewed
Laboratory Data:
Laboratory Results
11/10/24 07:57
11/10/24 07:57
Laboratory Results
PT 16.3 Sec (11.4-14.6) H 11/07/24 08:40
INR 1.28 11/07/24 08:40
APTT 30.7 Sec (23.4-35.0) 11/07/24 08:40
Magnesium Cancelled 11/09/24 11:29
Total Bilirubin 0.7 mg/dl (0.2-1.3) 11/10/24 07:57
AST 24 U/L (14-36) 11/10/24 07:57
ALT 12 U/L (0-35) 11/10/24 07:57
Alkaline Phosphatase 101 U/L (38-126) 11/10/24 07:57
Vital Signs and I&O:
Vital Signs
Temp Pulse Resp BP Pulse Ox
97.9 F 78 16 121/62 94
11/10/24 12:01 11/10/24 12:01 11/10/24 07:59 11/10/24 12:01 11/10/24 12:01
I&O
11/09/24 11/10/24 11/11/24
06:59 06:59 06:59
Intake Total 1540 / 1540 240 / 240
Balance 1540 / 1540 240 / 240
Physical Exam
Physical Exam
GEN: No acute distress, conversant, pleasant
HEENT: anicteric, extraocular movements intact, clear oropharynx without exudates
GI: soft, non-distended, not tender to palpation, LUQ with tfastner peg dressings c/d/i, normal active bowel sounds, no hepatosplenomegaly
EXT: warm, well perfused, no edema bilaterally
NEURO: AAOx3, non-focal
[2024-11-10 15:52] VITALS: BP 111/64
--- NOTE | 2024-11-10 16:08 | CM ---
Peg placed 11/09/24. [facility] has all pertinent info. Awaiting Medicare approval for home bolus feeds.
[2024-11-10 20:11] VITALS: BP 122/73
[2024-11-10 23:13] VITALS: BP 123/76
[2024-11-11 03:17] VITALS: BP 119/74
[2024-11-11 06:00] VITALS: BMI 25.2
[2024-11-11 07:00] VITALS: BP 136/69
[2024-11-11] MEDS: MAGIC OR MIRACLE MOUTHWASH 5 ML PO (10:10)
[2024-11-11] MEDS: CLARITIN 10 MG PO (10:11)
[2024-11-11] MEDS: NORVASC 5 MG PO (10:12)
[2024-11-11] MEDS: LEXAPRO 10 MG PO (10:12)
[2024-11-11] MEDS: LYRICA 100 MG PO (10:12)
[2024-11-11] MEDS: LYRICA 50 MG PO (10:14)
[2024-11-11] MEDS: HEPARIN SC (10:14)
[2024-11-11] MEDS: NSS (PRESERVATIVE FREE) 10 ML IV (10:15)
[2024-11-11] MEDS: PROTONIX IV 40 MG IV (10:16)
[2024-11-11 10:45] VITALS: BP 126/75
--- NOTE | 2024-11-11 10:47 | CM ---
CM reviewed chart, patient seen bedside, for discharge today.
Insurance card sent to [facility], confirmed patient is covered 100%
[facility] following, will have visit to patients home today once d/c.
IMM verbally reviewed, provided with copy, placed in chart.
Patients to provide transportation home.
CM will continue to follow for all d/c planning needs.
Plan; home with , [facility] for tube feeds, VN
[facility]
--- NOTE | 2024-11-11 13:00 | W.PN.HOSP.TC ---
Addendum entered and electronically signed by Carlos Alberto Childs MD 11/12/24 15:38:
Severe protein calorie malnutrition
Addendum entered and electronically signed by Carlos Alberto Childs MD 11/11/24 16:51:
[id number]
Original Note:
Today's Communication/Plan
-
PEG tube placed
TF fedings delivered
F/u Onc, GI , PCP outpt
labs outpt
Assessment / Plan
Assessment / Plan
Physical Exam
General: Conversant; No Fever or Chills
HEENT: Normocephalic, Anicteric, Moist mucous membranes, PERRLA, [place] Conjunctivae, No Ptosis and Other (Chronic sore right side tongue into neck due to squamous cell cancer, chronic adenopathy right anterior cervical chain); No Pharyngeal Erythema
Respiratory: Clear; No Wheezes, Rales or Rhonchi
Cardiac: S1/S2 and Regular Rhythm;
GI: Soft, Non Tender, Non Distended, Normal Bowel Sounds
Genito-urinary: No [place]
Musculoskeletal: No Clubbing, No Cyanosis and No Edema
Skin: Warm and Dry; No Rash
Neuro: AO x 3, No Motor Deficits, Nonfocal/grossly intact. No Sensory Deficits; No Slurred Speech, Facial Droop, Tremors or Sedated
Psych: Calm
A/P
#Intractable nausea vomiting due to chemo/radiation, resolved
No relief with Compazine and Zofran at home
c/w IVF
replace K, Mg
- As needed Phenergan for nausea vomiting if no relief
# Difficulty swallowing with weight loss/ intolerance to oral intake
d/w pt, her , they wanted GI evaluation for feeding tube placement.
Consulted GI, will follow
PEG tube placement 11/09, tolerated well;
� Initiate tube feeds as per dietary; GI will follow outpatient
#Leukopenia/anemia in setting of chemotherapy for Squamous cell tongue cancer
Hgb around 9
Consulted oncology, Primary doctor Dr Juraez, c/w supportive care
s/p G-CSF
-WBC responded well
- Patient
#Acute Hypokalemia/ hypomagnesemia
Hypocalcemia
c/w replacement
Recheck blood work in am
�Follow-up BMP oupatient
# chronic cough, unable to clear secretion
Cant swallow pills well
will do Robitussin solution
no fever, productive sputum
#HTN
Continue Norvasc 5 mg daily with hold parameters
#HLD
- Statin
#Anxiety
Continue Lexapro 10 mg daily
#History of breast cancer with right sided lumpectomy/radiation 2011
DVT prophylaxis
Subcu heparin
More than 30 minutes spent in discharge including
Final examination of the patient
Summarizing hospital stay
Instructions for continuing care to all relevant caregivers
Preparation of discharge records, prescriptions, and referral forms
Total time spent (in minutes): 36
Anticipated Discharge: Today
Subjective/Interval History
-
Date of Service: November 11, 2024
pending Tube feeding delivery; no acute events overnight
Objective Data
-
Vital Signs:
Vital Signs
Temp Pulse Resp BP Pulse Ox
98.2 F 80 16 126/75 98
11/11/24 10:45 11/11/24 10:45 11/11/24 10:45 11/11/24 10:45 11/11/24 11:40
I&O
11/10/24 11/11/24 11/12/24
06:59 06:59 06:59
Intake Total 240 / 240 945 / 945
Balance 240 / 240 945 / 945
Review of Systems
-
History Source: Patient
All other systems: Not reviewed unless documented
Data Reviewed
-
CT Scan: Report Reviewed by me
Labs: Labs Reviewed by me
--- NOTE | 2024-11-11 13:05 | W.DS.TRANS ---
DC Summary - Maint Mechanic
-
Discharge Instructions:
Discharge Diagnosis/Procedures Leukopenia/Neutropenia/Anemia
Feeding intolerance
Diet Other diet
Additional Diets CLD and Tube feeds
Bolus feedings would be acceptable in her
situation. She could do 6 bolus 240ml feeding
with 60ml flush before and after bolus.
Meds through the tube; 15 ml H20 flush before
and after meds
Activity As tolerated
Blood Work cbc and cmp with oncology in 5-7 days
Others Tests as per oncology outpatient
Instructions:
Stand-Alone Forms:
Changes to Home Medications: No
Discharge Medications:
DC Medications w/original date entered in [facility]
amlodipine 5 mg tablet (Norvasc) 5 mg PO DAILY Blood Pressure 11/05/24
atorvastatin 20 mg tablet (Lipitor) 20 mg PO QPM High Cholesterol 11/05/24
escitalopram oxalate 10 mg tablet (Lexapro) 10 mg PO DAILY Depression 11/05/24
lidocaine HCl 2 % mucosal solution (Lidocaine Viscous) 1 applic mucous membrane BIDPRN PRN throat pain 11/05/24
ondansetron HCl 4 mg tablet 4 mg PO Q8HPRN PRN nausea 11/05/24
oxycodone 5 mg tablet 5 mg PO Q6HPRN PRN severe pains 11/05/24
loratadine 10 mg tablet 10 mg PO DAILY 30 days #30 tabs 11/10/24
pantoprazole 40 mg tablet,delayed release 40 mg PO DAILY #30 tabs 11/10/24
pregabalin 50 mg capsule 75 mg (1.5 x 50 mg) PO BID #1 cap 11/10/24
Home Medication Changes
na
Pending Results: Yes
== END 2024-11-11 11:29 | disposition home health service (06) | DRG 640 ==
LOC: 4 WEST ACU 14:14
PROVIDERS: Clinical Nurse Specialist Family Health; Internal Medicine Gastroenterology; Nurse Practitioner Adult Health; Physician Assistant; ADMITTING PHYSICIAN Hospitalist; ATTENDING PHYSICIAN Internal Medicine; EMERGENCY PHYSICIAN Emergency Medicine; FAMILY PHYSICIAN Internal Medicine; OTHER PHYSICIAN Internal Medicine; OTHER PHYSICIAN Internal Medicine Hematology & Oncology
PROC: 0DH63UZ Insertion of Feeding Device into Stomach, Percutaneous Approach (ICD-10-PCS; 2024-11-09)
DX: E87.6 Hypokalemia (principal); E43 Unspecified severe protein-calorie malnutrition; E83.42 Hypomagnesemia; D64.81 Anemia due to antineoplastic chemotherapy; R13.10 Dysphagia, unspecified; C01 Malignant neoplasm of base of tongue; D70.1 Agranulocytosis secondary to cancer chemotherapy; T45.1X5A Adverse effect of antineoplastic and immunosuppressive drugs, initial encounter; Y84.2 Radiological procedure and radiotherapy as the cause of abnormal reaction of the patient, or of later complication, without mention of misadventure at the time of the procedure; G89.29 Other chronic pain; I10 Essential (primary) hypertension; F41.9 Anxiety disorder, unspecified; R63.30 Feeding difficulties, unspecified; E83.51 Hypocalcemia; R63.4 Abnormal weight loss; E87.8 Other disorders of electrolyte and fluid balance, not elsewhere classified; Z68.25 Body mass index [BMI] 25.0-25.9, adult; Z79.899 Other long term (current) drug therapy; Z85.3 Personal history of malignant neoplasm of breast; Z87.891 Personal history of nicotine dependence; Z92.3 Personal history of irradiation; Z86.73 Personal history of transient ischemic attack (TIA), and cerebral infarction without residual deficits
CPT/HCPCS: 71046; 80048; 80053; 83735; 85025; 85027; 85610; 85730; 92526; 92610; 93005; 96361; 96365; 96366; 96375; 97162; 97165; 99284; J1447

== ENCOUNTER 2025-01-27 17:13 | Emergency (ER) | payer MEDICARE, OTHER, SELFPAY ==
[2025-01-27 17:40] VITALS: BP 134/84
--- NOTE | 2025-01-27 17:44 | ED.GENMED ---
History of Present Illness
General
Chief Complaint: Catheter/Tube Problem
Time Seen by Provider: 01/27/25 17:43
History of Present Illness
History of Present Illness:
84-year-old female presents to the emergency department due to a dislodged PEG tube. She has been exclusively on oral feedings for the past several weeks and the tube was scheduled to be removed next week. Denies any pain. No fevers or chills
Review of Systems
Review of Systems
Allergies reviewed?: Yes
All Other Systems: ROS reviewed and negative except as documented in HPI and ROS
Phy Exam
Physical Exam
Physical Exam:
GEN: Well appearing, NAD, WDWN
HEENT: Oral mucosa moist, no scleral icterus
Cardiac: Regular rate
Lung: No respiratory distress, no tachypnea
Abdomen: PEG tube site in the left upper quadrant with scant discharge, no purulence
MSK: No gross deformity or injuries
Skin: Good color, no pallor or jaundice, no rashes
Neuro: AO x3, moves all extremities freely
Psych: Calm, cooperative
Course
Vital Signs
Initial and Last Documented VS:
Initial Vital Signs
Temp Pulse Resp BP Pulse Ox
98.7 F 67 16 134/84 98
01/27/25 17:40 01/27/25 17:40 01/27/25 17:40 01/27/25 17:40 01/27/25 17:40
Last Documented Vital Signs
Temp Pulse Resp BP Pulse Ox
98.7 F 67 16 134/84 98
01/27/25 17:40 01/27/25 17:40 01/27/25 17:40 01/27/25 17:40 01/27/25 17:40
MDM/Problems Addressed
MDM/Problems Addressed:
Reviewed with gastroenterology, no need for replacement given that the patient has been on oral feedings
*Pulse Oximetry
Patient hypoxic: no
*Critical Care Note
Total Time (30-74mins, 75-104mins- exclusive of procedures): Not Applicable
ED Attending Note
-
Portions of this chart may have been created with voice recognition software.� Occasional wrong word or��sound alike� substitutions may have occurred due to the inherent limitations of voice recognition software.
Discharge Plan
Departure
Patient Disposition: Home (Routine Discharge)
Date of Disposition: 01/27/25
Time of Disposition: 17:44
Patient with high blood pressure during this ER visit?: No
Discharge Problem:
Dislodged gastrostomy tube
Prescriptions:
No Action
atorvastatin [Lipitor] 20 mg Tablet
20 mg PO QPM
ondansetron HCl 4 mg Tablet
4 mg PO Q8HPRN PRN (Reason: nausea)
amlodipine [Norvasc] 5 mg Tablet
5 mg PO DAILY
lidocaine HCl [Lidocaine Viscous] 2 % Solution
1 applic MUCOUS MEMBRANE BIDPRN PRN (Reason: throat pain)
oxycodone 5 mg Tablet
5 mg PO Q6HPRN PRN (Reason: severe pains)
escitalopram oxalate [Lexapro] 10 mg Tablet
10 mg PO DAILY
loratadine 10 mg Tablet
10 mg PO DAILY 30 Days Qty: 30 0RF
pantoprazole 40 mg tablet,delayed release (DR/EC)
40 mg PO DAILY Qty: 30 0RF
pregabalin 50 mg Capsule
75 mg PO BID Qty: 1 0RF
Activity Restrictions/Additional Instructions:
Keep the wound covered at all times. You may gently wash in the shower to remove debris
Contact your GI doctor if there is noticeable leakage from the site, particularly after you eat, or severe abdominal pain
Interventions
Interventions:
*Risk Screen - Suicide Last Done: 01/27/25 17:40
*General Assessment Last Done: 01/27/25 17:40
*Neglect/Abuse Screening Last Done: 01/27/25 17:40
*Nursing Disposition Last Done: 01/27/25 17:52
Discharge Date and Time
Discharge Date/Time: 01/27/25 17:53
Print Language: AMHARIC
== END 2025-01-27 17:53 | disposition home or self-care (01) ==
LOC: EMR 17:13
PROVIDERS: EMERGENCY PHYSICIAN Emergency Medicine; FAMILY PHYSICIAN Internal Medicine Gastroenterology
DX: Z43.1 Encounter for attention to gastrostomy (principal)
CPT/HCPCS: 99282